=== PATIENT | male | born 1950 | race Caucasian/White ===

== ENCOUNTER 2018-01-29 13:17 | Inpatient (IN) | payer MEDICARE, OTHER ==
[2018-01-29] MEDS ORDERED: IPRATROPIUM/ALBUTEROL 0.5-2.5 MG/3 ML AMPUL NEB ONE ×3 (13:33)
[2018-01-29] MEDS ORDERED: METHYLPREDNISOLONE INJ 125 MG/2 ML SDV IV ONE (13:33)
--- NOTE | 2018-01-29 13:37 | ER Document Report ---
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 Patient notes he has been having shortness breath over the past year. Over the past few days his shortness of breath is worsened. Patient does note that he has been using nasal cannula. Patient denies any fevers or chills notes cough. Patient found satting 68% on triage TRAVEL OUTSIDE OF THE [place] IN LAST 30 DAYS: No - HPI Onset: Last week Onset/Duration: Persistent Quality of pain: No pain Severity: Severe Pain Level: Denies Associated symptoms: Leg swelling, Shortness of breath Exacerbated by: Movement, Walking, Coughing Relieved by: Other - Oxygenation Similar symptoms previously: Yes Recently seen / treated by doctor: Yes - Related Data Allergies/Adverse Reactions: kiwi Allergy (Verified 01/07/18 15:50) jellyfish Allergy (Uncoded 01/07/18 15:50) Past Medical History - Social History Smoking Status: Current Every Day Smoker Cigarette use (# per day): Yes Chew tobacco use (# tins/day): No Smoking Education Provided: Yes - Patient counselled regarding cessation for 2 minutes Family History: Reviewed & Not Pertinent - Past Medical History Cardiac Medical History: Reports: Hx Hypertension Denies: Hx Coronary Artery Disease - Patient says he had a very extensive cardiac evaluation about 3 years ago., Hx Heart Attack Pulmonary Medical History: Reports: Hx COPD Neurological Medical History: Denies: Hx Cerebrovascular Accident Endocrine Medical History: Reports: Hx Diabetes Mellitus Type 1, Hx Diabetes Mellitus Type 2 Renal/ Medical History: Reports: Hx Benign Prostatic Hyperplasia. Denies: Hx Peritoneal Dialysis Past Surgical History: Reports: Hx Abdominal Surgery - Partial colectomy for abscess, Hx Appendectomy, Hx Orthopedic Surgery - Immunizations Hx Diphtheria, Pertussis, Tetanus Vaccination: - unknown Hx Pneumococcal Vaccination: 06/28/14 Review of Systems - Review of Systems Notes: REVIEW OF SYSTEMS: CONSTITUTIONAL : Denies fever, chills, or sweats. Denies recent illness. EENT: Denies eye, ear, throat, or mouth pain or symptoms. Denies nasal or sinus congestion or discharge. Denies throat, tongue, or mouth swelling or difficulty swallowing. CARDIOVASCULAR: Denies chest pain. Denies palpitations or racing or irregular heart beat. Denies ankle edema. RESPIRATORY: Admits to shortness breath difficulty breathing GASTROINTESTINAL: Denies abdominal pain or distention. Denies nausea, vomiting , or diarrhea. Denies blood in vomitus, stools, or per rectum. Denies black, tarry stools. Denies constipation. GENITOURINARY: Denies difficulty urinating, painful urination, burning, frequency, blood in urine, or discharge. MUSCULOSKELETAL: Denies back or neck pain or stiffness. Denies joint pain or swelling. SKIN: Denies rash, lesions or sores. HEMATOLOGIC : Denies easy bruising or bleeding. LYMPHATIC: Denies swollen, enlarged glands. NEUROLOGICAL: Denies confusion or altered mental status. Denies passing out or loss of consciousness. Denies dizziness or lightheadedness. Denies headache. Denies weakness or paralysis or loss of use of either side. Denies problems with gait or speech. Denies sensory loss, numbness, or tingling. Denies seizures. PSYCHIATRIC: Denies anxiety or stress. Denies depression, suicidal ideation, or homicidal ideation. ALL OTHER SYSTEMS REVIEWED AND NEGATIVE. Dictation was performed using [employer] voice recognition software PHYSICAL EXAMINATION: GENERAL: Well-appearing, well-nourished and in no acute distress. Patient's hypoxic with a good [place] anywhere between 72-74% HEAD: Atraumatic, normocephalic. EYES: Pupils equal round extraocular movements intact, sclera anicteric, conjunctiva are normal. ENT: Nares patent, oropharynx clear without exudates. Moist mucous membranes. NECK: Normal range of motion LUNGS: Decreased breath sounds all throughout HEART: Regular rate and rhythm without murmurs Musculoskeletal: +1 pitting edema of lower extremities bilateral NEUROLOGICAL: Normal speech PSYCH: Normal mood, normal affect. SKIN: Warm, Dry, normal turgor, no rashes or lesions noted. Physical Exam - Vital signs Vitals: Pulse BP Pulse Ox 85 151/54 H 69 L 01/29/18 13:23 01/29/18 13:23 01/29/18 13:23 Course - Re-evaluation Re-evalutation: 01/29/18 13:37 Patient is noted while not being significant respiratory distress that he is in fact quite hypoxic oxygen will be placed breathing treatments CTA chest is pending 01/30/18 11:44 CTA chest is concerning for COPD exacerbation, pulmonary nodule noted whic is enlargng. pt given breathing treatments, copd with retention noted so bipap ordered, will be admitted to hospitalist service - Vital Signs Vital signs: Temp Pulse Resp BP Pulse Ox 97.5 F 72 19 151/62 H 92 01/30/18 07:35 01/30/18 08:45 01/30/18 08:45 01/30/18 07:35 01/30/18 07:35 - Laboratory Result Diagrams: 01/30/18 04:15 01/30/18 04:15 Laboratory results interpreted by me: 01/29/18 01/29/18 01/29/18 13:45 13:45 13:45 RBC 4.34 L Hgb 11.9 L Hct 37.0 L RDW 16.2 H VBG pCO2 VBG HCO3 Sodium 147.6 H Carbon Dioxide 38 H BUN 32 H Creatinine 1.71 H Est GFR ( Amer) 48 L Est GFR (Non-Af Amer) 40 L Glucose 135 H NT-Pro-B Natriuret Pep 945 H Urine Protein Urine Glucose (UA) Urine Blood Urine Urobilinogen 01/29/18 01/29/18 13:45 15:30 RBC Hgb Hct RDW VBG pCO2 72.9 H* VBG HCO3 36.0 H Sodium Carbon Dioxide BUN Creatinine Est GFR ( Amer) Est GFR (Non-Af Amer) Glucose NT-Pro-B Natriuret Pep Urine Protein 100 H Urine Glucose (UA) 50 H Urine Blood MODERATE H Urine Urobilinogen 2.0 H - Diagnostic Test Radiology reviewed: Image reviewed - cta chest noted copd, Reports reviewed Critical Care Note - Critical Care Note Total time excluding time spent on procedures (mins): 37 Comments: 37 minutes of critical care time spent in direct contact evaluating and reevaluating the patient, treating symptoms, reviewing labs and studies and speaking with family and consultants excluding any procedures Discharge - Discharge Clinical Impression: Hypoxemia, Tobacco abuse COPD (chronic obstructive pulmonary disease) with emphysema Qualifiers: Emphysema type: unspecified Qualified Code(s): J43.9 - Emphysema, unspecified Condition: Stable Disposition: ADMITTED INPATIENT Admitting Provider: Hospitalist Unit Admitted: Telemetry
[2018-01-29 14:22] LABS: ABSOLUTE EOSINOPHILS # (AUTO) 0.3 10^3/uL (0.0-0.6); ABSOLUTE LYMPHOCYTES (AUTO) 1.4 10^3/uL (0.5-4.7); ABSOLUTE MONOCYTES (AUTO) 0.7 10^3/uL (0.1-1.4); ABSOLUTE NEUT (AUTO) 5.7 10^3/uL (1.7-8.2); BASOPHILS % (AUTO) 0.6 % (0-2); EOSINOPHILS % (AUTO) 3.7 % (0-6); HEMOGLOBIN 11.9 g/dL (13.5-17.0); LYMPHOCYTES % (AUTO) 17.6 % (13-45); MEAN CORPUSCULAR HEMOGLOBIN 27.4 pg (27.0-33.4); MEAN CORPUSCULAR HGB CONC 32.2 g/dL (32.0-36.0); MEAN CORPUSCULAR VOLUME 85 fl (80-97); MONOCYTES % (AUTO) 8.4 % (3-13); PLATELET COUNT 200 10^3/uL (150-450); RED BLOOD COUNT 4.34 10^6/uL (4.35-5.55); RED CELL DISTRIBUTION WIDTH 16.2 % (11.5-14.0); SEGMENTED NEUTROPHILS % (AUTO) 69.7 % (42-78); TOTAL CELLS COUNTED % (AUTO) 100 %; WHITE BLOOD COUNT 8.2 10^3/uL (4.0-10.5)
[2018-01-29 14:41] LABS: ALANINE AMINOTRANSFERASE 40 U/L (21-72); ALBUMIN 3.5 g/dL (3.5-5.0); ALKALINE PHOSPHATASE 92 U/L (38-126); ANION GAP 8 (5-19); ASPARTATE AMINO TRANSFERASE 28 U/L (17-59); BILIRUBIN,DIRECT 0.2 mg/dL (0.0-0.4); BILIRUBIN,TOTAL 0.2 mg/dL (0.2-1.3); BLOOD UREA NITROGEN 32 mg/dL (7-20); CALCIUM 8.8 mg/dL (8.4-10.2); CARBON DIOXIDE 38 mmol/L (22-30); CHLORIDE 102 mmol/L (98-107); CREATINE KINASE 80 U/L (55-170); GLUCOSE 135 mg/dL (75-110); POTASSIUM 4.2 mmol/L (3.6-5.0); SODIUM 147.6 mmol/L (137-145); TOTAL PROTEIN 6.4 g/dL (6.3-8.2)
[2018-01-29 14:54] LABS: CREATINE KINASE MB 3.57 ng/mL (<4.55); TROPONIN I 0.033 ng/mL
--- NOTE | 2018-01-29 14:57 | RADIOLOGY REPORT (SQ) ---
EXAM DESCRIPTION: CHEST SINGLE VIEW COMPLETED DATE/TIME: 01/29/2018 2:17 pm REASON FOR STUDY: sob, copd COMPARISON: 01/07/2018 EXAM PARAMETERS: NUMBER OF VIEWS: One view. TECHNIQUE: Single frontal radiographic view of the chest acquired. RADIATION DOSE: NA LIMITATIONS: None. FINDINGS: LUNGS AND PLEURA: Mild chronic interstitial changes are present. There is no infiltrate o r effusion. . There is no mass. MEDIASTINUM AND HILAR STRUCTURES: No masses. Contour normal. HEART AND VASCULAR STRUCTURES: Heart normal in size. Normal vasculature. BONES: No acute findings. HARDWARE: None in the chest. OTHER: No other significant finding. IMPRESSION: Chronic lung changes with no acute cardiopulmonary disease. TECHNICAL DOCUMENTATION: JOB ID: [id number] [employer]- All Rights Reserved Reading location - IP/workstation name: [email or web address]
--- NOTE | 2018-01-29 15:07 | RADIOLOGY REPORT (SQ) ---
EXAM DESCRIPTION: CTA CHEST COMPLETED DATE/TIME: 01/29/2018 2:50 pm REASON FOR STUDY: sob, copd COMPARISON: CT 11/05/2015 TECHNIQUE: CT scan of the chest performed using helical scanning technique with dynamic intravenous contrast injection. Images reviewed with lung, soft tissue and bone windows. Reconstructed coronal and sagittal MPR images reviewed. Additional 3 dimensional post-processing performed to develop Maximal Intensity Projection images (RI P). All images stored on PACS. All CT scanners at this facility use dose modulation, iterative reconstruction, and/or weight based d osing when appropriate to reduce radiation dose to as low as reasonably achievable (ALARA). [facility]: Dose Right [facility]: CareDose [facility]: Dose Right [facility]: Teradose 4D [facility]: Metric Insights CONTRAST TYPE AND DOSE: contrast/concentration: Isovue 370.00 mg/ml; Total Contrast Delivered: 78.0 ml; Total Saline Delivered: 63.3 ml Contrast bolus optimized for the pulmonary arteries. Not diagnostic for the aorta. RENAL FUNCTION: BUN 28 creatinine 1.72 RADIATION DOSE: CT Rad equipment meets quality standard of care and radiation dose reduction techniq ues were employed. CTDIvol: 30.4 - 33.1 mGy. DLP: 1370 mGy-cm. . LIMITATIONS: None. FINDINGS: LUNGS AND PLEURA: Centrilobular emphysematous changes. There is an irregular nodule in th e right upper lobe posterolaterally that measures 15 mm in largest dimension. This is larger than on the prior study. Left pleural/parenchymal scarring in the right base posteriorly. AORTA AND GREAT VESSELS: No aneurysm. Contrast bolus not optimized for the aorta. HEART: No pericardial effusion. Moderate to marked coronary artery calcifications. PULMONARY ARTERIES: No emboli visualized in the main pulmonary arteries or the segmental branches. HILAR AND MEDIASTINAL STRUCTURES: There is calcified left hilar lymph node. HARDWARE: None in the chest. UPPER ABDOMEN: Diverticulosis coli. THYROID AND OTHER SOFT TISSUES: No masses. No adenopathy. BONES: No acute or significant finding. 3D MIPS: Confirm above findings. OTHER: No other significant finding. IMPRESSION: 1. There is no evidence of pulmonary emboli. 2. There is 15 mm nodule in the right upper lobe that is larger than on the prior study. Consider P ET-CT. 3. Pulmonary emphysema. 4. Diverticulosis coli. COMMENT: F[place]ISCHNER CRITERIA FOR FOLLOW-UP OF PULMONARY NODULES Incidentally detected new nodules in persons 35 or older. HIGH RISK: History of smoking or other known risk factors. >8mm single solid nodule: LOW and HIGH RISK: consider CT, PET/CT or biopsy at 3 mo. Quality ID # [id number]: Final reports with documentation of one or more dose reduction techniques (e.g., Au tomated exposure control, adjustment of the mA and/or kV according to patient size, use of iterative reconstruction technique) TECHNICAL DOCUMENTATION: JOB ID: [id number] [employer]- All Rights Reserved Reading location - IP/workstation name: [email or web address]
[2018-01-29] MEDS ORDERED: BENZONATATE 100 MG CAPSULE PO PRN (15:51)
[2018-01-29] MEDS ORDERED: ACETAMINOPHEN 325 MG TABLET PO PRN (15:51)
[2018-01-29] MEDS ORDERED: OXYCODONE-ACETAMINOPHEN 5-325 MG TABLET PO PRN (15:51)
[2018-01-29] MEDS ORDERED: ONDANSETRON HCL INJ/PF 4 MG/2 ML SDV IV PRN (15:51)
[2018-01-29 15:53] LABS: VENOUS BLOOD BASE EXCESS 7.1 mmol/L; VENOUS BLOOD PH 7.31 (7.30-7.42)
[2018-01-29 15:55] LABS: VENOUS BLOOD PCO2 72.9 mmHg (35-63)
[2018-01-29 16:01] LABS: APPEARANCE,URINE CLEAR; BILIRUBIN,URINE NEGATIVE (NEGATIVE); COLOR,URINE YELLOW; GLUCOSE, URINE 50 mg/dL (NEGATIVE); KETONES,URINE NEGATIVE (NEGATIVE); LEUKOCYTE ESTERASE,URINE NEGATIVE (NEGATIVE); NITRITE,URINE NEGATIVE (NEGATIVE); PROTEIN,URINE 100 mg/dL (NEGATIVE)
[2018-01-29] MEDS ORDERED: NICOTINE 21 MG/24 HR PATCH.TD24 TD PRN (16:33)
[2018-01-29] MEDS ORDERED: DEXTROSE 40% GEL 15 GM TUBE PO PRN ×2 (16:34)
[2018-01-29] MEDS ORDERED: INSULIN LISPRO 100 UNIT/ML 3 ML VIAL SUBCUT PRN (16:34)
[2018-01-29] MEDS ORDERED: DEXTROSE 50%-WATER 25 GM/50 ML DISP.SYRIN IV PRN ×2 (16:34)
[2018-01-29] MEDS ORDERED: GLUCAGON,HUMAN RECOMB 1 MG INJ IM PRN (16:34)
[2018-01-29] MEDS ORDERED: ALPRAZOLAM 0.5 MG TABLET PO PRN (16:35)
--- NOTE | 2018-01-29 17:00 | PDOC H&P ---
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 Patient also complains of having swelling of his legs. He admits that he use oxygen at home around 2-5 L. At the most he uses oxygen four hours a day. Patient complains of having cough but had not been able to bring up the phlegm that he stuck in his chest. Patient denies chest pain. He admits also having a history of COPD. He continues smoking. He admits as to smoke around one pack of cigarettes per day.Patient acknowledges history of diabetes and takes Lantus and truly CT for management of diabetes. He was recently placed on Catapres for the management of blood pressure.Patient also states that he suffers from kidney disease and he has only one kidney. 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 Pulse ox while in ED was in the 70s. Patient was evaluated through CTA of the chest which shows centrilobular emphysema and lung nodule which appear to be larger when compared to previous studies. Hospitalist service was consulted and prompted to admit for further management as this patient may allow us Past Medical History Cardiac Medical History: Reports: Hypertension Denies: Coronary Artery Disease - Patient says he had a very extensive cardiac evaluation about 3 years ago., Myocardial Infarction Pulmonary Medical History: Reports: Chronic Obstructive Pulmonary Disease (COPD) EENT Medical History: Reports: Cataracts Neurological Medical History: Reports: None Endocrine Medical History: Reports: Diabetes Mellitus Type 2 Renal/ Medical History: Reports: Chronic Kidney Disease Malignancy Medical History: Reports: None GI Medical History: Reports: None Musculoskeltal Medical History: Reports: None Skin Medical History: Reports: None Psychiatric Medical History: Reports: Tobacco Dependency Traumatic Medical History: Reports: None Hematology: Reports: None Infectious Medical History: Reports: None Past Surgical History Past Surgical History: Reports: Appendectomy, Orthopedic Surgery, Other - Cataract surgery Social History Information Source: Patient Smoking Status: Current Every Day Smoker Cigarettes Packs Per Day: 1 Frequency of Alcohol Use: None Hx Recreational Drug Use: No Drugs: None Hx Prescription Drug Abuse: No - Advance Directive Resuscitation Status: Full Code Family History Family History: DM, Hypertension Parental Family History Reviewed: Yes Children Family History Reviewed: Yes Sibling(s) Family History Reviewed.: Yes Medication/Allergy Home Medications: Lisinopril/Hydrochlorothiazide [Lisinopril-Hctz 10-12.5 mg Tab] 1 tab PO DAILY 06/18/15 Buspirone HCl [Buspar 10 mg Tablet] 10 mg PO Q8 #90 tablet 06/24/15 Diltiazem HCl [Cardizem Cd 120 mg Capsule] 120 mg PO DAILY #30 cap.sr.24h Ferrous Sulfate [Feosol 325 mg Tablet] 325 mg PO DAILY #100 tablet 06/24/15 Fluticasone/Salmeterol [Advair 250-50 Diskus 28 dose] 1 inh IH Q12H #1 inhaler 06/24/15 Insulin Glargine,Hum.rec.anlog [Lantus Insulin 100 Unit/mL] 20 unit SUBCUT QHS # 1 insuln.pen 06/24/15 Levofloxacin [Levaquin 500 mg Tablet] 500 mg PO DAILY #5 tablet 06/24/15 Prednisone [Deltasone 10 mg Tablet] 10 mg PO DAILY #7 tablet 06/24/15 Tiotropium [place] [Spiriva] 18 mcg IH DAILY #30 cap.w.dev 06/24/15 Fluoxetine HCl [Prozac 20 mg Capsule] 20 mg PO DAILY #10 capsule 06/30/15 Lamotrigine [Lamictal] 50 mg PO QHS #20 tablet 06/30/15 Divalproex Sodium [Depakote ER 500 mg Tab.sr] 1,000 mg PO QHS #10 tab.sr.24h 01/10 Hydroxyzine Pamoate [Vistaril] 50 mg PO Q6HP PRN #60 capsule 07/01/15 Metoprolol Succinate [Toprol Xl 25 mg Tab.sr] 12.5 mg PO BID #30 tab.sr.24h 09/14 Allergies/Adverse Reactions: kiwi Allergy (Verified 01/07/18 15:50) jellyfish Allergy (Uncoded 01/07/18 15:50) Review of Systems Constitutional: PRESENT: chills. ABSENT: fever(s), headache(s), weakness Eyes: ABSENT: visual disturbances Ears: ABSENT: hearing changes Nose, Mouth, and Throat: ABSENT: headache(s), mouth pain, sore throat Cardiovascular: PRESENT: dyspnea on exertion, edema. ABSENT: chest pain, palpitations Respiratory: PRESENT: cough, dyspnea Gastrointestinal: ABSENT: abdominal pain, nausea, vomiting Genitourinary: ABSENT: dysuria, hematuria Musculoskeletal: PRESENT: deformity Neurological: ABSENT: dizziness, frequent falls Psychiatric: ABSENT: hallucinations Endocrine: ABSENT: polydipsia, polyphagia, polyuria Physical Exam Vital Signs: Temp Pulse Resp BP Pulse Ox 86 22 H 167/83 H 97 01/29/18 13:31 01/29/18 14:02 01/29/18 14:02 01/29/18 14:02 General appearance: PRESENT: cooperative, mild distress, obese Head exam: ABSENT: atraumatic, normocephalic Eye exam: ABSENT: conjunctiva pink, EOMI, PERRLA Ear exam: ABSENT: normal external ear exam Mouth exam: ABSENT: moist Teeth exam: PRESENT: poor dentation Neck exam: PRESENT: full ROM. ABSENT: JVD, lymphadenopathy, tenderness Respiratory exam: PRESENT: crackles, decreased breath sounds Cardiovascular exam: PRESENT: RRR. ABSENT: diastolic murmur, systolic murmur Vascular exam: PRESENT: normal capillary refill GI/Abdominal exam: PRESENT: normal bowel sounds, soft. ABSENT: tenderness Extremities exam: PRESENT: full ROM, other - 3+ edema Musculoskeletal exam: PRESENT: ambulatory Neurological exam: PRESENT: alert, awake, oriented to person, oriented to place , oriented to time, oriented to situation, CN II-XII grossly intact Psychiatric exam: PRESENT: anxious Skin exam: PRESENT: normal color Results Impressions: Chest X-Ray 01/29/18 13:32 IMPRESSION: Chronic lung changes with no acute cardiopulmonary disease. Chest/Abdomen CTA 01/29/18 13:32 IMPRESSION: 1. There is no evidence of pulmonary emboli. 2. There is 15 mm nodule in the right upper lobe that is larger than on the prior study. Consider PET-CT. 3. Pulmonary emphysema. 4. Diverticulosis coli. Assessment & Plan - Diagnosis (1) Acute and chronic respiratory failure ([id number]) Qualifiers: Respiratory failure complication: unspecified whether with hypoxia or hypercapnia Qualified Code(s): J96.20 - Acute and chronic respiratory failure , unspecified whether with hypoxia or hypercapnia Is this a current diagnosis for this admission?: Yes Plan: To place patient on BiPAP. Order ABG. Consult Dr. Mccord (2) Acute cor pulmonale Is this a current diagnosis for this admission?: Yes Plan: To gently diuresis. To order echocardiogram (3) COPD with exacerbation Is this a current diagnosis for this admission?: Yes Plan: To place patient on DuoNeb's, Mucinex, IV steroids, Tessalon Perles and IV steroids. Since appears to have a bronchial component to order Zithromax (4) Anemia Qualifiers: Anemia type: unspecified type Qualified Code(s): D64.9 - Anemia, unspecified Is this a current diagnosis for this admission?: Yes Plan: Order anemia panel (5) Chronic renal failure Qualifiers: Chronic kidney disease stage: stage 4 (severe) Qualified Code(s): N18.4 - Chronic kidney disease, stage 4 (severe) Is this a current diagnosis for this admission?: Yes Plan: Patient claims having 1 kidney. Will order renal sonogram. Will treat high blood pressure. 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 Order hemoglobin A1c (7) HTN (hypertension) Qualifiers: Hypertension type: essential hypertension Qualified Code(s): I10 - Essential (primary) hypertension Is this a current diagnosis for this admission?: Yes Plan: To place patient on Norvasc 10 mg p.o. daily and lisinopril 10 mg p.o. daily. To order Norvasc IV for systolic blood pressure higher or equal to 160 or diastolic blood pressure higher or equal to 110 (8) Tobacco abuse Is this a current diagnosis for this admission?: Yes Plan: Will place patient on nicotine patch. Educated about quitting but not amenable to quit. Will place on low-dose Xanax - Time Time Spent: 30 to 50 Minutes Medications reviewed and adjusted accordingly: Yes Anticipated discharge: Home Within: within 72 hours - Inpatient Certification Based on my medical assessment, after consideration of the patient's comorbidities, presenting symptoms, or acuity I expect that the services needed warrant INPATIENT care.: Yes I certify that my determination is in accordance with my understanding of Medicare's requirements for reasonable and necessary INPATIENT services [42 CFR 412.3e].: Yes Medical Necessity: Significant Comorbidiites Make Outpatient Treatment Too Risky , Need Close Monitoring Due to Risk of Patient Decompensation, Need For Continuous Telemetry Monitoring, Need for Nebulizer Therapy and Monitoring of Response
[2018-01-29 17:21] LABS: ARTERIAL BLOOD BASE EXCESS 2.1 mmol/L; ARTERIAL BLOOD HCO3 29.2 mmol/L (20-26); ARTERIAL BLOOD O2 SATURATION 84.5 % (94-98); ARTERIAL BLOOD PCO2 56.6 mmHg (35-45); ARTERIAL BLOOD PH 7.33 (7.35-7.45); ARTERIAL BLOOD PO2 53.1 mmHg (80-100); ARTERIAL BLOOD TOTAL CO2 30.9 mmol/L (23-27)
[2018-01-29 17:24] LABS: ARTERIAL BLOOD FIO2 2L
[2018-01-29] MEDS ORDERED: LISINOPRIL 10 MG TABLET PO SCH (18:00)
[2018-01-29] MEDS ORDERED: FUROSEMIDE INJ/PF 20 MG/2 ML SDV IV SCH (18:00)
[2018-01-29] MEDS: DOCUSATE SODIUM 100 MG CAPSULE PO SCH (18:56)
[2018-01-29] MEDS: GUAIFENESIN 600 MG TABLET.SA PO SCH (18:56)
[2018-01-29] MEDS: AZITHROMYCIN 250 MG TABLET PO SCH (18:56)
[2018-01-29] MEDS: FUROSEMIDE INJ/PF 20 MG/2 ML SDV IV SCH (18:57)
[2018-01-29] MEDS: METHYLPREDNISOLONE INJ 40 MG/1 ML SDV IV SCH (18:57)
[2018-01-29] MEDS: IPRATROPIUM/ALBUTEROL 0.5-2.5 MG/3 ML AMPUL NEB SCH (19:45)
--- NOTE | 2018-01-29 21:05 | EKG REPORT ---
SEVERITY:- ABNORMAL ECG - SINUS RHYTHM ATRIAL PREMATURE COMPLEX LEFT ANTERIOR FASCICULAR BLOCK BORDERLINE R WAVE PROGRESSION, ANTERIOR LEADS NONSPECIFIC T ABNORMALITIES, LATERAL LEADS : Confirmed by: Ashtyn Martin 29-Jan-2018 21:04:55
[2018-01-29] MEDS: ALBUTEROL SULFATE 0.083% NEB 2.5 MG/3 ML AMPUL NEB PRN (21:07)
[2018-01-29] MEDS: HEPARIN SOD (PORCINE) 5,000 UNIT/ML 1 ML SYRINGE SUBCUT SCH (21:27)
[2018-01-29] MEDS: INSULIN GLARGINE,HUM.REC.ANLOG 300 UNIT/3 ML INSULN.PEN SUBCUT SCH (21:28)
[2018-01-29] MEDS ORDERED: AMLODIPINE BESYLATE 10 MG TABLET PO SCH (22:00)
[2018-01-29] MEDS ORDERED: ZOLPIDEM TARTRATE 5 MG TABLET PO PRN (22:00)
[2018-01-30] MEDS: METHYLPREDNISOLONE INJ 40 MG/1 ML SDV IV SCH ×3 (02:47→19:21)
[2018-01-30 04:29] LABS: ABSOLUTE LYMPHOCYTES (AUTO) 0.6 10^3/uL (0.5-4.7); ABSOLUTE MONOCYTES (AUTO) 0.3 10^3/uL (0.1-1.4); ABSOLUTE NEUT (AUTO) 5.4 10^3/uL (1.7-8.2); ABSOLUTE RETICS # 0.113 10^6/uL (0.028-0.122); BASOPHILS % (AUTO) 0.5 % (0-2); EOSINOPHILS % (AUTO) 0.1 % (0-6); HEMATOCRIT 40.2 % (37.9-51.0); HEMOGLOBIN 12.7 g/dL (13.5-17.0); LYMPHOCYTES % (AUTO) 9.9 % (13-45); MEAN CORPUSCULAR HEMOGLOBIN 27.2 pg (27.0-33.4); MEAN CORPUSCULAR HGB CONC 31.6 g/dL (32.0-36.0); MEAN CORPUSCULAR VOLUME 86 fl (80-97); MONOCYTES % (AUTO) 4.1 % (3-13); PLATELET COUNT 211 10^3/uL (150-450); RED BLOOD COUNT 4.66 10^6/uL (4.35-5.55); RED CELL DISTRIBUTION WIDTH 16.1 % (11.5-14.0); RETICULOCYTE COUNT (AUTO) 2.42 % (0.66-2.85); SEGMENTED NEUTROPHILS % (AUTO) 85.4 % (42-78); TOTAL CELLS COUNTED % (AUTO) 100 %; WHITE BLOOD COUNT 6.3 10^3/uL (4.0-10.5)
[2018-01-30 04:39] LABS: ANION GAP 9 (5-19); BLOOD UREA NITROGEN 35 mg/dL (7-20); CALCIUM 8.9 mg/dL (8.4-10.2); CARBON DIOXIDE 39 mmol/L (22-30); CHLORIDE 100 mmol/L (98-107); GLUCOSE 192 mg/dL (75-110); IRON(TIBC) 40.3 ug/dL (49-181); SODIUM 147.6 mmol/L (137-145)
[2018-01-30 04:55] LABS: POTASSIUM 5.6 mmol/L (3.6-5.0)
[2018-01-30] MEDS: GUAIFENESIN 600 MG TABLET.SA PO SCH ×2 (05:30→19:21)
[2018-01-30] MEDS: FUROSEMIDE INJ/PF 20 MG/2 ML SDV IV SCH ×2 (05:31→19:21)
[2018-01-30] MEDS: HEPARIN SOD (PORCINE) 5,000 UNIT/ML 1 ML SYRINGE SUBCUT SCH ×3 (05:31→22:41)
[2018-01-30] MEDS: ALBUTEROL SULFATE 0.083% NEB 2.5 MG/3 ML AMPUL NEB PRN ×2 (05:47→10:15)
[2018-01-30] MEDS ORDERED: SODIUM POLYSTYRENE SULFONATE 15 GM/60 ML PO ONE (07:14)
[2018-01-30] MEDS: IPRATROPIUM/ALBUTEROL 0.5-2.5 MG/3 ML AMPUL NEB SCH ×3 (08:45→20:16)
[2018-01-30] MEDS: ASPIRIN 81 MG TABLET, ENT COATED PO SCH (09:57)
[2018-01-30] MEDS: INSULIN GLARGINE,HUM.REC.ANLOG 300 UNIT/3 ML INSULN.PEN SUBCUT SCH ×2 (09:57→22:43)
--- NOTE | 2018-01-30 10:05 | RADIOLOGY REPORT (SQ) ---
EXAM DESCRIPTION: U/S RETROPERITON (RENAL/AORTA) COMPLETED DATE/TIME: 01/30/2018 9:52 am REASON FOR STUDY: CKD COMPARISON: CT from 05/02/2016 TECHNIQUE: Dynamic and static grayscale images acquired of the kidneys and bladder and recorded on P ACS. Additional selected color Doppler and spectral images recorded. LIMITATIONS: None. FINDINGS: RIGHT KIDNEY: Normal size. Normal echogenicity. Stable cyst. No solid or suspicious mass es. No hydronephrosis. No calcifications. LEFT KIDNEY: Not visible. BLADDER: No masses. OTHER FINDINGS: No other significant finding. IMPRESSION: LEFT KIDNEY IS NOT VISIBLE BY ULTRASOUND AND WAS NOTED TO BE SEVERELY ATROPHIC ON PRIOR CT. NO OBSTRUCTIVE UROPATHY RIGHT KIDNEY. TECHNICAL DOCUMENTATION: JOB ID: [id number] [employer]- All Rights Reserved Reading location - IP/workstation name: [email or web address]
[2018-01-30] MEDS: INSULIN LISPRO 100 UNIT/ML 3 ML VIAL SUBCUT SCH ×3 (10:25→17:08)
[2018-01-30 11:06] LABS: INTERNATIONAL RATION (INR) 1.05; PROTHROMBIN TIME 14.3 SEC (11.4-15.4)
[2018-01-30 11:07] LABS: PARTIAL THROMBOPLASTIN TIME 32.7 SEC (23.5-35.8)
[2018-01-30] MEDS ORDERED: HYDRALAZINE HCL 50 MG TABLET PO ONE (12:15)
[2018-01-30] MEDS ORDERED: AMLODIPINE BESYLATE 10 MG TABLET PO ONE (13:00)
[2018-01-30] MEDS ORDERED: MORPHINE SULFATE 10 MG/ML INJ IV PRN (15:43)
[2018-01-30] MEDS ORDERED: METOPROLOL TARTRATE PF/INJ 5 MG/5 ML SDV IV PRN (15:44)
[2018-01-30] MEDS ORDERED: LORAZEPAM INJ 2 MG/1 ML VIAL IV SCH (15:45)
[2018-01-30 15:55] LABS: ARTERIAL BLOOD BASE EXCESS 9.1 mmol/L; ARTERIAL BLOOD FIO2 30%; ARTERIAL BLOOD H2CO3 2.22 mmol/L (1.05-1.35); ARTERIAL BLOOD HCO3 37.8 mmol/L (20-26); ARTERIAL BLOOD O2 SATURATION 89.5 % (94-98); ARTERIAL BLOOD PH 7.33 (7.35-7.45); ARTERIAL BLOOD PO2 63.1 mmHg (80-100); ARTERIAL BLOOD TOTAL CO2 40.1 mmol/L (23-27)
[2018-01-30 15:56] LABS: ARTERIAL BLOOD PCO2 73.9 mmHg (35-45)
[2018-01-30] MEDS ORDERED: LORAZEPAM 24 MG/ D5W 240 ML IV PRN (16:12)
--- NOTE | 2018-01-30 17:46 | PDOC PROGRESS REPORT ---
Subjective Progress Note for:: 01/30/18 Subjective:: Patient was seen midmorning patient stated that he was doing better. He was asked again if he uses alcohol and he denied in front of the nurse. Then around 1600, the nurse called because was concerned since patient was desaturating. Changes were made to BiPAP and went to evaluate patient. Fortunately there was another nurse who was acquainted with this patient and when I inquired she informed me that the patient has been treated for alcohol withdrawal in the past. It appears that this patient abuses alcohol heavily. Review of systems All organ systems evaluated and negative except as in subjective All significant diagnostics and laboratories have been reviewed Reason For Visit: ACUTE ON CHRONIC RESPIRATORY FAILURE AECOPD Physical Exam Vital Signs: Temp Pulse Resp BP Pulse Ox 97.2 F 74 22 H 153/57 H 95 01/30/18 03:14 01/30/18 05:47 01/30/18 05:47 01/30/18 03:14 01/30/18 03:14 Intake & Output 01/29/18 01/30/18 01/31/18 06:59 06:59 06:59 Output Total 1050 Balance -1050 Weight 93.3 kg General appearance: PRESENT: no acute distress, cooperative, well-developed, well-nourished Head exam: PRESENT: atraumatic, normocephalic Eye exam: PRESENT: conjunctiva pink, EOMI, PERRLA Ear exam: PRESENT: normal external ear exam Mouth exam: PRESENT: moist Neck exam: PRESENT: full ROM. ABSENT: JVD, lymphadenopathy, tenderness Respiratory exam: PRESENT: decreased breath sounds, other - Some improvement of movement of air when compared to admission Cardiovascular exam: PRESENT: RRR. ABSENT: diastolic murmur, systolic murmur Vascular exam: PRESENT: normal capillary refill GI/Abdominal exam: PRESENT: normal bowel sounds, soft. ABSENT: tenderness Extremities exam: PRESENT: full ROM, +1 edema Musculoskeletal exam: PRESENT: ambulatory Neurological exam: PRESENT: alert, awake, oriented to person Psychiatric exam: PRESENT: anxious Skin exam: PRESENT: normal color Results Laboratory Results: 01/30/18 04:15 01/30/18 04:15 01/29/18 01/30/18 01/30/18 17:05 04:15 04:15 WBC 6.3 RBC 4.66 Hgb 12.7 L Hct 40.2 MCV 86 MCH 27.2 MCHC 31.6 L RDW 16.1 H Plt Count 211 Seg Neutrophils % 85.4 H Lymphocytes % 9.9 L Monocytes % 4.1 Eosinophils % 0.1 Basophils % 0.5 Absolute Neutrophils 5.4 Absolute Lymphocytes 0.6 Absolute Monocytes 0.3 Absolute Eosinophils 0.0 Absolute Basophils 0.0 Retic Count (auto) 2.42 Absolute Retic 0.113 Carbonic Acid 1.70 H HCO3/H2CO3 Ratio 17:1 ABG pH 7.33 L ABG pCO2 56.6 H ABG pO2 53.1 L ABG HCO3 29.2 H ABG O2 Saturation 84.5 L ABG Base Excess 2.1 FiO2 2L Sodium 147.6 H Potassium 5.6 H D Chloride 100 Carbon Dioxide 39 H Anion Gap 9 BUN 35 H Creatinine 1.74 H Est GFR ( Amer) 47 L Est GFR (Non-Af Amer) 39 L Glucose 192 H Calcium 8.9 Magnesium 2.4 H Iron 40.3 L TIBC 437 % Saturation 9 Ferritin 18.60 Vitamin B12 411.0 Folate 10.90 TSH 01/30/18 04:15 WBC RBC Hgb Hct MCV MCH MCHC RDW Plt Count Seg Neutrophils % Lymphocytes % Monocytes % Eosinophils % Basophils % Absolute Neutrophils Absolute Lymphocytes Absolute Monocytes Absolute Eosinophils Absolute Basophils Retic Count (auto) Absolute Retic Carbonic Acid HCO3/H2CO3 Ratio ABG pH ABG pCO2 ABG pO2 ABG HCO3 ABG O2 Saturation ABG Base Excess FiO2 Sodium Potassium Chloride Carbon Dioxide Anion Gap BUN Creatinine Est GFR ( Amer) Est GFR (Non-Af Amer) Glucose Calcium Magnesium Iron TIBC % Saturation Ferritin Vitamin B12 Folate TSH 0.24 L 01/29/18 01/29/18 01/30/18 16:53 22:10 04:15 Troponin I 0.031 0.023 0.024 Impressions: Chest X-Ray 01/29/18 13:32 IMPRESSION: Chronic lung changes with no acute cardiopulmonary disease. Chest/Abdomen CTA 01/29/18 13:32 IMPRESSION: 1. There is no evidence of pulmonary emboli. 2. There is 15 mm nodule in the right upper lobe that is larger than on the prior study. Consider PET-CT. 3. Pulmonary emphysema. 4. Diverticulosis coli. Assessment & Plan - Diagnosis (1) Acute and chronic respiratory failure ([id number]) Qualifiers: Respiratory failure complication: unspecified whether with hypoxia or hypercapnia Qualified Code(s): J96.20 - Acute and chronic respiratory failure , unspecified whether with hypoxia or hypercapnia Is this a current diagnosis for this admission?: Yes Plan: Chief BiPAP settings. Order ABG (2) Acute cor pulmonale Is this a current diagnosis for this admission?: Yes Plan: Continue with gentle diuresis. Echocardiogram ordered (3) COPD with exacerbation Is this a current diagnosis for this admission?: Yes Plan: Continue DuoNeb's, Mucinex, IV steroids, Tessalon Perles, IV steroids and Zithromax (4) Anemia Qualifiers: Anemia type: unspecified type Qualified Code(s): D64.9 - Anemia, unspecified Is this a current diagnosis for this admission?: Yes Plan: Order anemia panel (5) Chronic renal failure Qualifiers: Chronic kidney disease stage: stage 4 (severe) Qualified Code(s): N18.4 - Chronic kidney disease, stage 4 (severe) Is this a current diagnosis for this admission?: Yes Plan: Patient claims having 1 kidney. Renal sonogram noted. Will continue treating high blood pressure. Discontinue low-dose lisinopril and add hydralazine to his regimen. (6) Diabetes mellitus Qualifiers: Diabetes mellitus type: type 2 Diabetes mellitus detention insulin use: with detention use Diabetes mellitus complication status: with kidney complications Chronic kidney disease stage: stage 4 (severe) Is this a current diagnosis for this admission?: Yes Plan: Continue Lantus twice a day, Humalog before meals and Humalog sliding scale with bedside glucose before meals and at bedtime. Noted hemoglobin A1c (7) HTN (hypertension) Qualifiers: Hypertension type: essential hypertension Qualified Code(s): I10 - Essential (primary) hypertension Is this a current diagnosis for this admission?: Yes Plan: Continue Norvasc 10 mg p.o. daily. Discontinue lisinopril due to bump in potassium. To place him on hydralazine. (8) Tobacco abuse Is this a current diagnosis for this admission?: Yes Plan: Continue nicotine patch. Educated about quitting but not amenable to quit. Discontinue Xanax. (9) Alcohol abuse Is this a current diagnosis for this admission?: Yes Plan: Patient will be transferred to intensive care unit and placed on a continuous Ativan drip. Concern patient may need to be intubated as he does have a history of a prior intubation according to staff. To start thiamine 300 mg p.o. daily and multivitamin. Will also order morphine IV for breakthrough agitation. Also to order Lopressor IV every 6 hours as needed for heart rate higher or equal to 110 - Time Time Spent with patient: 25-34 minutes Medications reviewed and adjusted accordingly: Yes Anticipated discharge: Home with Homehealth Within: Other - unable to tell at this time - Inpatient Certification Based on my medical assessment, after consideration of the patient's comorbidities, presenting symptoms, or acuity I expect that the services needed warrant INPATIENT care.: Yes I certify that my determination is in accordance with my understanding of Medicare's requirements for reasonable and necessary INPATIENT services [42 CFR 412.3e].: Yes Medical Necessity: Significant Comorbidiites Make Outpatient Treatment Too Risky , Need Close Monitoring Due to Risk of Patient Decompensation, Need For Continuous Telemetry Monitoring, Need for Nebulizer Therapy and Monitoring of Response
[2018-01-30 18:20] LABS: ARTERIAL BLOOD BASE EXCESS 9.6 mmol/L; ARTERIAL BLOOD H2CO3 1.88 mmol/L (1.05-1.35); ARTERIAL BLOOD HCO3 36.9 mmol/L (20-26); ARTERIAL BLOOD PCO2 62.5 mmHg (35-45); ARTERIAL BLOOD PH 7.39 (7.35-7.45); ARTERIAL BLOOD PO2 56.1 mmHg (80-100); ARTERIAL BLOOD TOTAL CO2 38.8 mmol/L (23-27)
[2018-01-30 18:21] LABS: ARTERIAL BLOOD FIO2 30%
[2018-01-30] MEDS: AZITHROMYCIN 250 MG TABLET PO SCH (19:21)
[2018-01-30] MEDS: DOCUSATE SODIUM 100 MG CAPSULE PO SCH (19:21)
[2018-01-30] MEDS: HYDRALAZINE HCL 50 MG TABLET PO SCH (22:55)
[2018-01-30] MEDS ORDERED: HYDRALAZINE HCL INJ/PF 20 MG/1 ML SDV IV PRN (23:08)
[2018-01-31] MEDS: METHYLPREDNISOLONE INJ 40 MG/1 ML SDV IV SCH (01:37)
[2018-01-31 03:33] LABS: ABSOLUTE EOSINOPHILS # (AUTO) 0.1 10^3/uL (0.0-0.6); ABSOLUTE LYMPHOCYTES (AUTO) 1.1 10^3/uL (0.5-4.7); ABSOLUTE MONOCYTES (AUTO) 0.6 10^3/uL (0.1-1.4); ABSOLUTE NEUT (AUTO) 9.3 10^3/uL (1.7-8.2); BASOPHILS % (AUTO) 0.4 % (0-2); EOSINOPHILS % (AUTO) 0.5 % (0-6); HEMATOCRIT 39.2 % (37.9-51.0); HEMOGLOBIN 12.3 g/dL (13.5-17.0); LYMPHOCYTES % (AUTO) 9.7 % (13-45); MEAN CORPUSCULAR HEMOGLOBIN 26.9 pg (27.0-33.4); MEAN CORPUSCULAR HGB CONC 31.3 g/dL (32.0-36.0); MEAN CORPUSCULAR VOLUME 86 fl (80-97); MONOCYTES % (AUTO) 5.5 % (3-13); PLATELET COUNT 227 10^3/uL (150-450); RED BLOOD COUNT 4.56 10^6/uL (4.35-5.55); SEGMENTED NEUTROPHILS % (AUTO) 83.9 % (42-78); TOTAL CELLS COUNTED % (AUTO) 100 %; WHITE BLOOD COUNT 11.1 10^3/uL (4.0-10.5)
[2018-01-31 03:34] LABS: ARTERIAL BLOOD BASE EXCESS 8.6 mmol/L; ARTERIAL BLOOD FIO2 40%; ARTERIAL BLOOD H2CO3 2.94 mmol/L (1.05-1.35); ARTERIAL BLOOD HCO3 39.9 mmol/L (20-26); ARTERIAL BLOOD PH 7.23 (7.35-7.45); ARTERIAL BLOOD PO2 92.1 mmHg (80-100); ARTERIAL BLOOD TOTAL CO2 42.9 mmol/L (23-27)
[2018-01-31 03:35] LABS: ARTERIAL BLOOD PCO2 97.6 mmHg (35-45)
[2018-01-31 03:45] LABS: ANION GAP 8 (5-19); BLOOD UREA NITROGEN 37 mg/dL (7-20); CALCIUM 9.1 mg/dL (8.4-10.2); CARBON DIOXIDE 38 mmol/L (22-30); CHLORIDE 102 mmol/L (98-107); GLUCOSE 96 mg/dL (75-110); SODIUM 148.2 mmol/L (137-145)
[2018-01-31 04:06] LABS: POTASSIUM 4.3 mmol/L (3.6-5.0)
[2018-01-31] MEDS: FUROSEMIDE INJ/PF 20 MG/2 ML SDV IV SCH (05:24)
[2018-01-31] MEDS: HEPARIN SOD (PORCINE) 5,000 UNIT/ML 1 ML SYRINGE SUBCUT SCH ×2 (05:25→13:40)
[2018-01-31 05:45] LABS: ARTERIAL BLOOD H2CO3 2.06 mmol/L (1.05-1.35); ARTERIAL BLOOD HCO3 35.3 mmol/L (20-26); ARTERIAL BLOOD PCO2 68.4 mmHg (35-45); ARTERIAL BLOOD PH 7.33 (7.35-7.45); ARTERIAL BLOOD PO2 61.4 mmHg (80-100); ARTERIAL BLOOD TOTAL CO2 37.4 mmol/L (23-27)
[2018-01-31 05:46] LABS: ARTERIAL BLOOD FIO2 30%
[2018-01-31] MEDS: HYDRALAZINE HCL 50 MG TABLET PO SCH ×2 (06:31→13:36)
[2018-01-31] MEDS: GUAIFENESIN 600 MG TABLET.SA PO SCH ×2 (06:31→17:23)
[2018-01-31] MEDS: IPRATROPIUM/ALBUTEROL 0.5-2.5 MG/3 ML AMPUL NEB SCH ×2 (07:51→13:37)
[2018-01-31] MEDS: INSULIN LISPRO 100 UNIT/ML 3 ML VIAL SUBCUT SCH ×3 (08:13→15:08)
[2018-01-31 08:47] LABS: ARTERIAL BLOOD BASE EXCESS 7.5 mmol/L; ARTERIAL BLOOD H2CO3 2.66 mmol/L (1.05-1.35); ARTERIAL BLOOD HCO3 37.9 mmol/L (20-26); ARTERIAL BLOOD O2 SATURATION 97.9 % (94-98); ARTERIAL BLOOD PH 7.25 (7.35-7.45); ARTERIAL BLOOD PO2 128.5 mmHg (80-100); ARTERIAL BLOOD TOTAL CO2 40.6 mmol/L (23-27)
[2018-01-31 08:48] LABS: ARTERIAL BLOOD FIO2 30%
[2018-01-31 08:49] LABS: ARTERIAL BLOOD PCO2 88.4 mmHg (35-45)
[2018-01-31] MEDS ORDERED: PHARMACY COMMUNICATION ORDER MC NR (09:00)
[2018-01-31] MEDS ORDERED: PROPOFOL 100 ML IV ONE (09:06)
[2018-01-31] MEDS: PROPOFOL 100 ML IV PRN ×4 (09:20→17:58)
[2018-01-31] MEDS ORDERED: SUCCINYLCHOLINE CHLORIDE INJ 200 MG/10 ML VIAL ONE (09:59)
[2018-01-31] MEDS ORDERED: AMLODIPINE BESYLATE 10 MG TABLET PO SCH (10:00)
[2018-01-31] MEDS ORDERED: MULTIVITAMIN TABLET PO SCH (10:00)
[2018-01-31] MEDS ORDERED: THIAMINE HCL 100 MG TABLET PO SCH (10:00)
--- NOTE | 2018-01-31 10:00 | RADIOLOGY REPORT (SQ) ---
EXAM DESCRIPTION: CHEST SINGLE VIEW COMPLETED DATE/TIME: 01/31/2018 9:51 am REASON FOR STUDY: post intubation COMPARISON: 01/29/2018 EXAM PARAMETERS: NUMBER OF VIEWS: One view. TECHNIQUE: Single frontal radiographic view of the chest acquired. RADIATION DOSE: NA LIMITATIONS: None. FINDINGS: LUNGS AND PLEURA: No new opacities, masses or pneumothorax. No pleural effusion. MEDIASTINUM AND HILAR STRUCTURES: No masses. Contour normal. HEART AND VASCULAR STRUCTURES: Heart stable in size. Normal vasculature. BONES: No acute findings. HARDWARE: Endotracheal tube approximately 5 cm above the olvin. Nasogastric tube within the stomach . OTHER: No other significant finding. IMPRESSION: SATISFACTORY PLACEMENT ENDOTRACHEAL TUBE AND NASOGASTRIC TUBE. OTHERWISE STABLE APPEARA NCE OF THE CHEST. TECHNICAL DOCUMENTATION: JOB ID: [id number] [employer]- All Rights Reserved Reading location - IP/workstation name: [email or web address]
[2018-01-31] MEDS ORDERED: NOREPINEPHRINE BITARTRATE INJ/PF 4 MG/4 ML SDV IV ONE (11:03)
[2018-01-31] MEDS: ASPIRIN 81 MG TABLET, ENT COATED PO SCH (11:04)
[2018-01-31] MEDS: INSULIN GLARGINE,HUM.REC.ANLOG 300 UNIT/3 ML INSULN.PEN SUBCUT SCH (11:06)
[2018-01-31 11:15] LABS: ARTERIAL BLOOD BASE EXCESS 9.3 mmol/L; ARTERIAL BLOOD HCO3 36.9 mmol/L (20-26); ARTERIAL BLOOD O2 SATURATION 88.3 % (94-98); ARTERIAL BLOOD PCO2 66.5 mmHg (35-45); ARTERIAL BLOOD PH 7.36 (7.35-7.45); ARTERIAL BLOOD PO2 58.3 mmHg (80-100); ARTERIAL BLOOD TOTAL CO2 38.9 mmol/L (23-27)
[2018-01-31 11:20] LABS: ARTERIAL BLOOD FIO2 40%
[2018-01-31] MEDS ORDERED: DIGOXIN INJ 0.5 MG/2 ML AMPULE IV ONE (11:27)
[2018-01-31] MEDS ORDERED: DEXTROSE 5%-WATER 250 ML with NOREPINEPHRINE BITARTRATE 4 MG IV PRN ×2 (11:51)
[2018-01-31] MEDS ORDERED: NORMAL SALINE 1000 ML 1,000 ML IV PRN (11:56)
[2018-01-31] MEDS ORDERED: MIDAZOLAM HCL 50 MG/100 ML RTUINJ IV PRN (12:08)
--- NOTE | 2018-01-31 13:01 | RADIOLOGY REPORT (SQ) ---
EXAM DESCRIPTION: CHEST SINGLE VIEW COMPLETED DATE/TIME: 01/31/2018 12:47 pm REASON FOR STUDY: ETT placement post advancement. COMPARISON: None. EXAM PARAMETERS: NUMBER OF VIEWS: One view. TECHNIQUE: Single frontal radiographic view of the chest acquired. RADIATION DOSE: NA LIMITATIONS: None. FINDINGS: LUNGS AND PLEURA: No new opacities, masses or pneumothorax. No pleural effusion. MEDIASTINUM AND HILAR STRUCTURES: No masses. Contour normal. HEART AND VASCULAR STRUCTURES: Heart normal in size. Normal vasculature. BONES: No acute findings. HARDWARE: Endotracheal tube approximately 4 cm above the olvin. Nasogastric tube within the stomach . OTHER: No other significant finding. IMPRESSION: STABLE APPEARANCE OF THE CHEST WAS SATISFACTORY PLACEMENT OF ENDOTRACHEAL TUBE AND NASOG ASTRIC TUBE. TECHNICAL DOCUMENTATION: JOB ID: [id number] [employer]- All Rights Reserved Reading location - IP/workstation name: [email or web address]
--- NOTE | 2018-01-31 13:09 | PDOC PROGRESS REPORT ---
Subjective Progress Note for:: 01/31/18 Subjective:: When patient was seen around 8:00 he appeared to be somnolent but responsive to verbal chest stimulation. Nurse updated the author about night events in that patient required changes in BiPAP settings. Appears that night physician opted not to intubate. Repeat ABGs demonstrated elevated bicarb and requested to contact anesthesia to intubate patient. 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 All were very upset about being told that patient was placed in ICU because of alcohol withdrawal. All of them vehemently stated that he does not drink alcohol. inquires about the care that he received 3 years ago. She was made aware that I did not work at this facility then. They were also informed that the information about alcohol abuse was offered by staff including nurse practitioner.History taking on admission was limited likely because patient was not feeling well. In order to make them at ease told them that from my part, I was going to document that he does not drink any alcohol. Family was also requesting for patient to be transferred to [facility]. It appears that they had contacted historiography professor, Dr. Barraza and there was a bed available. The author discussed with them the terms of transfer, that is, patient required a higher level of care and services not been able to be provided at this facility or per family request. The second option will imply family will be in charge of transportation cost. Finally, family was amenable for patient to stay at this facility with the understanding that the author will proceed to transfer patient if no improvement or worsening within the next 24-48 hours.They were also aware that Dr. Mccord has been consulted Review of systems Unable to obtain due to mental status All significant diagnostics and laboratories have been reviewed Reason For Visit: ACUTE ON CHRONIC RESPIRATORY FAILURE AECOPD Physical Exam Vital Signs: Temp Pulse Resp BP Pulse Ox 98.0 F 78 28 H 139/62 H 99 01/30/18 16:00 01/30/18 20:15 01/31/18 06:04 01/31/18 06:04 01/31/18 05:04 Intake & Output 01/30/18 01/31/18 02/01/18 06:59 06:59 06:59 Intake Total 507 Output Total 1050 0 Balance -1050 -1543 Weight 93.3 kg 89.1 kg General appearance: PRESENT: well-developed, well-nourished - somnolent, other Head exam: PRESENT: atraumatic, normocephalic Eye exam: PRESENT: conjunctiva pink, EOMI, PERRLA Ear exam: PRESENT: normal external ear exam Mouth exam: PRESENT: moist Neck exam: PRESENT: full ROM. ABSENT: JVD, lymphadenopathy, tenderness, thyromegaly Respiratory exam: PRESENT: clear to auscultation fredo, decreased breath sounds Cardiovascular exam: PRESENT: tachycardia. ABSENT: diastolic murmur, systolic murmur Vascular exam: PRESENT: normal capillary refill GI/Abdominal exam: PRESENT: normal bowel sounds, soft. ABSENT: tenderness Extremities exam: PRESENT: full ROM, pedal edema Musculoskeletal exam: ABSENT: ambulatory Neurological exam: PRESENT: other - somnolent Skin exam: PRESENT: intact, normal color Results Laboratory Results: 01/31/18 03:21 01/31/18 03:21 01/30/18 01/30/18 01/31/18 15:32 18:07 03:15 WBC RBC Hgb Hct MCV MCH MCHC RDW Plt Count Seg Neutrophils % Lymphocytes % Monocytes % Eosinophils % Basophils % Absolute Neutrophils Absolute Lymphocytes Absolute Monocytes Absolute Eosinophils Absolute Basophils Carbonic Acid 2.22 H 1.88 H 2.94 H HCO3/H2CO3 Ratio 17:1 19:1 13:1 ABG pH 7.33 L 7.39 7.23 L ABG pCO2 73.9 H* 62.5 H 97.6 H* ABG pO2 63.1 L 56.1 L 92.1 ABG HCO3 37.8 H 36.9 H 39.9 H ABG O2 Saturation 89.5 L 88.0 L 95.0 ABG Base Excess 9.1 9.6 8.6 FiO2 30% 30% 40% Sodium Potassium Chloride Carbon Dioxide Anion Gap BUN Creatinine Est GFR ( Amer) Est GFR (Non-Af Amer) Glucose Calcium Magnesium 01/31/18 01/31/18 01/31/18 03:21 03:21 05:32 WBC 11.1 H RBC 4.56 Hgb 12.3 L Hct 39.2 MCV 86 MCH 26.9 L MCHC 31.3 L RDW 16.0 H Plt Count 227 Seg Neutrophils % 83.9 H Lymphocytes % 9.7 L Monocytes % 5.5 Eosinophils % 0.5 Basophils % 0.4 Absolute Neutrophils 9.3 H Absolute Lymphocytes 1.1 Absolute Monocytes 0.6 Absolute Eosinophils 0.1 Absolute Basophils 0.0 Carbonic Acid 2.06 H HCO3/H2CO3 Ratio 17:1 ABG pH 7.33 L ABG pCO2 68.4 H ABG pO2 61.4 L ABG HCO3 35.3 H ABG O2 Saturation 89.0 L ABG Base Excess 7.0 FiO2 30% Sodium 148.2 H Potassium 4.3 D Chloride 102 Carbon Dioxide 38 H Anion Gap 8 BUN 37 H Creatinine 1.64 H Est GFR ( Amer) 51 L Est GFR (Non-Af Amer) 42 L Glucose 96 Calcium 9.1 Magnesium 2.4 H 01/29/18 01/29/18 01/30/18 16:53 22:10 04:15 Troponin I 0.031 0.023 0.024 01/30/18 01/30/18 01/31/18 16:20 21:20 03:21 Troponin I 0.028 0.034 0.035 Impressions: Chest X-Ray 01/29/18 13:32 IMPRESSION: Chronic lung changes with no acute cardiopulmonary disease. Chest/Abdomen CTA 01/29/18 13:32 IMPRESSION: 1. There is no evidence of pulmonary emboli. 2. There is 15 mm nodule in the right upper lobe that is larger than on the prior study. Consider PET-CT. 3. Pulmonary emphysema. 4. Diverticulosis coli. Renal Ultrasound 01/30/18 00:00 IMPRESSION: LEFT KIDNEY IS NOT VISIBLE BY ULTRASOUND AND WAS NOTED TO BE SEVERELY ATROPHIC ON PRIOR CT. NO OBSTRUCTIVE UROPATHY RIGHT KIDNEY. Assessment & Plan - Diagnosis (1) Acute and chronic respiratory failure ([id number]) Qualifiers: Respiratory failure complication: unspecified whether with hypoxia or hypercapnia Qualified Code(s): J96.20 - Acute and chronic respiratory failure , unspecified whether with hypoxia or hypercapnia Is this a current diagnosis for this admission?: Yes Plan: Orders given for intubation, ABG one hour post, NG tube placement, cxr post intubation (2) Acute cor pulmonale Is this a current diagnosis for this admission?: Yes Plan: Discontinue diuresis for now. Echocardiogram ordered (3) COPD with exacerbation Is this a current diagnosis for this admission?: Yes Plan: Continue DuoNeb's, Mucinex, IV steroids, Tessalon Perles, IV steroids, change to Levaquin IV and add Mucomyst (4) Anemia Qualifiers: Anemia type: unspecified type Qualified Code(s): D64.9 - Anemia, unspecified Is this a current diagnosis for this admission?: Yes Plan: Anemia panel pending (5) Chronic renal failure Qualifiers: Chronic kidney disease stage: stage 4 (severe) Qualified Code(s): N18.4 - Chronic kidney disease, stage 4 (severe) Is this a current diagnosis for this admission?: Yes Plan: Renal sonogram noted. Trend renal function closely (6) Diabetes mellitus Qualifiers: Diabetes mellitus type: type 2 Diabetes mellitus halfway insulin use: with oil heaterman use Diabetes mellitus complication status: with kidney complications Chronic kidney disease stage: stage 4 (severe) Is this a current diagnosis for this admission?: Yes Plan: Continue Lantus twice a day, discontinue Humalog before meals and continue Humalog sliding scale with bedside glucose before meals and at bedtime. Noted hemoglobin A1c. Consult dietitian for tube feedings while he is on ventilatory support (7) HTN (hypertension) Qualifiers: Hypertension type: essential hypertension Qualified Code(s): I10 - Essential (primary) hypertension Is this a current diagnosis for this admission?: Yes Plan: Will hold off antihypertensive therapy since hypotensive after intubation (8) Tobacco abuse Is this a current diagnosis for this admission?: Yes Plan: Continue nicotine patch. Educated about quitting but not amenable to quit. (9) Alcohol abuse Is this a current diagnosis for this admission?: No Plan: Patient's family deny history of alcohol abuse. They want for this issue to be clarified in the chart and to talk to staff not provided the information that patient had been treated for alcohol withdrawal. I was able to go back to 2015 in his chart and there is no documentation in that regard. Patient will be on a Versed drip for the purpose of him being on a ventilator and needing sedation. Will continue with thiamine and multivitamin supplementation - Time Time Spent with patient: 25-34 minutes Medications reviewed and adjusted accordingly: Yes Anticipated discharge: Home with Homehealth Within: when bed available - unable to tell at this time - Inpatient Certification Based on my medical assessment, after consideration of the patient's comorbidities, presenting symptoms, or acuity I expect that the services needed warrant INPATIENT care.: Yes I certify that my determination is in accordance with my understanding of Medicare's requirements for reasonable and necessary INPATIENT services [42 CFR 412.3e].: Yes Medical Necessity: Need Close Monitoring Due to Risk of Patient Decompensation, Need For IV Fluids, Need For Continuous Telemetry Monitoring, Need for IV Antibiotics
[2018-01-31] MEDS ORDERED: METHYLPREDNISOLONE INJ 40 MG/1 ML SDV IV SCH ×2 (14:00→18:00)
[2018-01-31] MEDS ORDERED: LEVOFLOXACIN 500 MG/D5W RTU 500 MG/100 ML RTUPB IV SCH (15:00)
[2018-01-31 15:08] LABS: ANION GAP 9 (5-19); BLOOD UREA NITROGEN 41 mg/dL (7-20); CALCIUM 8.8 mg/dL (8.4-10.2); CARBON DIOXIDE 34 mmol/L (22-30); CHLORIDE 104 mmol/L (98-107); GLUCOSE 79 mg/dL (75-110); SODIUM 147.3 mmol/L (137-145)
--- NOTE | 2018-01-31 16:05 | PDOC TRANSFER SUMMARY ---
General Admission Date/PCP: 01/29/18 15:49 Admission Date: 01/29/18 Transfer Date: 01/31/18 Accepting Facility: [facility] Accepting Physician: Dr Barraza Resuscitation Status: Full Code - Transfer Diagnosis (1) Acute and chronic respiratory failure ([id number]) Is this a current diagnosis for this admission?: Yes (2) Acute cor pulmonale Is this a current diagnosis for this admission?: Yes (3) COPD with exacerbation Is this a current diagnosis for this admission?: Yes (4) Anemia Is this a current diagnosis for this admission?: Yes (5) Chronic renal failure Is this a current diagnosis for this admission?: Yes (6) Diabetes mellitus Is this a current diagnosis for this admission?: Yes (7) HTN (hypertension) Is this a current diagnosis for this admission?: Yes (8) Tobacco abuse Is this a current diagnosis for this admission?: Yes (9) Alcohol abuse Is this a current diagnosis for this admission?: No (10) Pulmonary nodule Is this a current diagnosis for this admission?: Yes - Transfer Medications Home Medications: Albuterol Sulfate [Ventolin Hfa] 18 gm IN Q6HP PRN 01/29/18 Atorvastatin Calcium [Lipitor 40 mg Tablet] 40 mg PO QHS 01/29/18 Budesonide/Formoterol Fumarate [Symbicort 160-4.5 Mcg Inhaler] 2 puff IN Q12 01/13 Dulaglutide [Trulicity] 1.5 mg SQ TU@1000 01/29/18 Ergocalciferol (Vitamin D2) [Vitamin D] 400 unit PO DAILY 01/29/18 Insulin Glargine,Hum.rec.anlog [Basaglar Kwikpen U-100] 50 unit SQ QAM 01/29/18 Ipratropium/Albuterol Sulfate [Duoneb 3 ml Ampul] 3 ml IN RTQ6 01/29/18 Lamotrigine [Lamictal 100 mg Tablet] 100 mg PO DAILY 01/29/18 Modafinil [Provigil] 200 mg PO Q12 01/29/18 Transfer Medications: Current Medications Acetaminophen (Tylenol 325 Mg Tablet) 325 mg PO Q4HP PRN PRN Reason: FOR PAIN OR TEMP Stop: 02/28/18 15:50 Acetylcysteine (Mucomist 20% Soln 800 Mg/4 Ml) 600 mg NEB RTBID DG Stop: 03/02/18 19:59 Albuterol (Ventolin 0.083% Neb 2.5 Mg/3 Ml Ampul) 2.5 mg NEB RTQ2HP PRN PRN Reason: SHORTNESS OF BREATH Stop: 02/28/18 15:50 Last Admin: 01/30/18 10:15 Dose: 2.5 mg Albuterol/Ipratropium (Duoneb 3 Ml Ampul) 3 ml NEB [id number] DG Stop: 02/28/18 19:59 Last Admin: 01/31/18 13:37 Dose: 3 ml Amlodipine Besylate (Norvasc 10 Mg Tablet) 10 mg PO DAILY [facility] Stop: 03/02/18 09:59 Last Admin: 01/31/18 11:04 Dose: Not Given Aspirin (Ecotrin 81 Mg Ec Tablet) 81 mg PO DAILY [facility] Stop: 03/01/18 09:59 Last Admin: 01/31/18 11:04 Dose: 81 mg Atorvastatin Calcium (Lipitor 80 Mg Tablet) 80 mg PO QHS [facility] Stop: 03/02/18 21:59 Benzonatate (Tessalon Perles 100 Mg Capsule) 100 mg PO Q8HP PRN PRN Reason: COUGH Stop: 02/28/18 15:50 Last Admin: 01/29/18 23:27 Dose: 100 mg Cholecalciferol (Vitamin D3 400 Unit Tablet) 400 unit PO QPM [facility] Stop: 03/02/18 17:59 Dextrose (Dextrose Inj 50% Syringe (25 Gm/50 Ml)) 12.5 gm IV PRN PRN; Protocol PRN Reason: FOR BG 50-69 IN ALERT PATIENT Stop: 02/28/18 16:33 Dextrose (Dextrose Inj 50% Syringe (25 Gm/50 Ml)) 25 gm IV PRN PRN; Protocol PRN Reason: PER PROTOCOL Stop: 02/28/18 16:33 Docusate Sodium (Colace 100 Mg Capsule) 100 mg PO QPM [facility] Stop: 02/28/18 17:59 Last Admin: 01/30/18 19:21 Dose: Not Given Glucagon (Glucagen Inj 1 Mg Vial) 1 mg IM PRN PRN; Protocol PRN Reason: Evaluate for BG < 70 Stop: 02/28/18 16:33 Glucose (Glutose 40% Gel 15 Gm Tube) 15 gm PO PRN PRN; Protocol PRN Reason: FOR BG 50-69 IN ALERT PATIENT Stop: 02/28/18 16:33 Glucose (Glutose 40% Gel 15 Gm Tube) 30 gm PO PRN PRN; Protocol PRN Reason: FOR BG < 50 IN ALERT PATIENT Stop: 02/28/18 16:33 Guaifenesin (Mucinex Sr 600 Mg Tablet.Sa) 600 mg PO Q12A [facility] Stop: 02/28/18 17:59 Last Admin: 01/31/18 06:31 Dose: Not Given Heparin Sodium (Porcine) (Heparin Inj 5,000 Units/Ml 1 Ml Syringe) 5,000 unit SUBCUT Q8 DG Stop: 02/28/18 21:59 Last Admin: 01/31/18 13:40 Dose: 5,000 unit Hydralazine HCl (Apresoline 50 Mg Tablet) 100 mg PO Q8 DG Stop: 03/01/18 21:59 Last Admin: 01/31/18 13:36 Dose: Not Given Hydralazine HCl (Apresoline Inj/Pf 20 Mg/1 Ml Sdv) 10 mg IV Q6HP PRN PRN Reason: GIVE FOR SBP > 180 Stop: 03/01/18 23:07 Lorazepam (Ativan Iv Infusion 24 Mg/240 Ml Bag) 24 mg in 240 mls @ 0 mls/hr IV CONTINUOUS PRN; Protocol; Titrate PRN Reason: THIS MED IS NOT "PRN" Stop: 02/06/18 16:11 Last Admin: 01/30/18 17:07 Dose: 240 ml Propofol (Diprivan Rtu 1000 Mg/100 Ml Inf.Bottle) 100 mls @ 0 mls/hr IV CONTINUOUS PRN; Protocol; Titrate PRN Reason: THIS MED IS NOT "PRN" Stop: 03/02/18 09:00 Last Admin: 01/31/18 13:39 Dose: 100 ml Norepinephrine Bitartrate 4 mg (/ Dextrose) 250 mls @ 0 mls/hr IV CONTINUOUS PRN; Protocol; Titrate PRN Reason: THIS MED IS NOT "PRN" Stop: 03/02/18 11:50 Sodium Chloride (Nacl 0.9% 1000 Ml Iv Soln) 1,000 mls @ 100 mls/hr IV CONTINUOUS PRN Stop: 03/02/18 11:55 Last Admin: 01/31/18 13:00 Dose: 1,000 ml Midazolam HCl (Versed Rtu 50 Mg/100 Ml Premix Bag) 50 mg in 100 mls @ 0 mls/hr IV CONTINUOUS PRN; Protocol; Titrate PRN Reason: THIS MED IS NOT "PRN" Stop: 02/07/18 12:07 Last Admin: 01/31/18 12:59 Dose: 100 ml Levofloxacin/Dextrose (Levaquin Rtu 750 Mg/D5w 150 Ml Premix) 750 mg in 150 mls @ 100 mls/hr IV DAILY [facility] Stop: 02/08/18 09:59 Insulin Glargine (Lantus Insulin Inj 300 Unit/3 Ml Pen) 35 unit SUBCUT Q12 DG Stop: 02/28/18 21:59 Last Admin: 01/31/18 11:06 Dose: 35 unit Insulin Human Lispro (Humalog Insulin 100 Unit/1 Ml 3 Ml Vial) 0 - 12 unit SUBCUT ACHSP PRN; Protocol PRN Reason: PER PROTOCOL Stop: 02/28/18 16:33 Last Admin: 01/29/18 21:27 Dose: 8 unit Insulin Human Lispro (Humalog Insulin 100 Unit/1 Ml 3 Ml Vial) 6 unit SUBCUT AC [facility] Stop: 03/01/18 07:59 Last Admin: 01/31/18 15:08 Dose: Not Given Lamotrigine (Lamictal 100 Mg Tablet) 100 mg PO DAILY [facility] Stop: 03/03/18 09:59 Lansoprazole (Prevacid 30 Mg Odt Tablet) 30 mg NG QAM [facility] Stop: 03/03/18 07:59 Methylprednisolone Sodium Succinate (Solu-Medrol Inj/Pf 40 Mg/1 Ml Sdv) 40 mg IV Q8 DG Stop: 03/02/18 13:59 Last Admin: 01/31/18 13:40 Dose: 40 mg Metoprolol Succinate (Toprol Xl 25 Mg Tab.Sr) 12.5 mg PO Q12A [facility] Stop: 03/02/18 17:59 Metoprolol Tartrate (Lopressor Inj/Pf 5 Mg/5 Ml Sdv) 5 mg IV Q6HP PRN PRN Reason: GIVE FOR SBP > [] / DBP > [] Stop: 03/01/18 15:43 Last Admin: 01/31/18 09:19 Dose: 5 mg Modafinil (Provigil 100 Mg Tablet) 200 mg PO Q12 DG Stop: 02/07/18 21:59 Morphine Sulfate (Morphine 10 Mg/Ml Inj) 2 mg IV Q4HP PRN PRN Reason: FOR PAIN SCALE 4-5 Stop: 02/06/18 15:42 Multivitamins (Tab-A-Carley (Multiple Vitamin) Tablet) 1 tab PO DAILY DG Stop: 03/02/18 09:59 Last Admin: 01/31/18 11:04 Dose: 1 tab Nicotine (Nicoderm 21 Mg/24 Hr Transderm Patch) 1 each TD DAILYP PRN PRN Reason: WITHDRAWAL SYMPTOMS Stop: 02/28/18 16:32 Ondansetron HCl (Zofran Inj/Pf 4 Mg/2 Ml Sdv) 4 mg IV Q6HP PRN PRN Reason: FOR NAUSEA/VOMITING Stop: 02/28/18 15:50 Oxycodone/Acetaminophen (Percocet 5-325 Mg Tablet) 1 tab PO Q4HP PRN PRN Reason: FOR PAIN SCALE 3-5 Stop: 02/05/18 15:50 Pharmacy Profile Note (Medication Communication Order) 1 each MC .NOTICE NR Stop: 03/02/18 08:59 Thiamine HCl (Thiamine 100 Mg Tablet) 300 mg PO DAILY DG Stop: 03/02/18 09:59 Last Admin: 01/31/18 11:05 Dose: 300 mg - Allergies Allergies/Adverse Reactions: kiwi Allergy (Verified 01/07/18 15:50) jellyfish Allergy (Uncoded 01/07/18 15:50) Hospital Course Hospital Course: TAZ CHINCHILLA is a 67 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 Patient also complained of having swelling of his legs for 4 days as well. He repeorted that he uses oxygen at home around 2-5 L. At the most he uses oxygen four hours a day. Patient complained of having cough but had not been able to bring up the phlegm that is stuck in his chest. Patient denied chest pain. He also has a history of COPD. He continues smoking. He admitted as to smoke around one pack of cigarettes per day.Patient acknowledged history of diabetes and takes Lantus and Trulicity for management of diabetes. He was recently placed on Catapres for the management of blood pressure but stopped using it.Patient also stated that he suffers from kidney disease and he has only one kidney. It is noteworthy to mention that history taking was somewhat limited because he was constantly reminding the author that he needed to get out of here by Thursday since he has to open a new office. Pulse ox while in ED was in the 70s. Patient was evaluated through CTA of the chest which showed centrilobular emphysema and a lung nodule which appeared to be larger when compared to previous studies. Hospitalist service was consulted and prompted to admit for further management as this patient would allowed us Patient was admitted to the stepdown unit since was placed on BiPAP. Initial concern was acute on chronic respiratory failure- hypercapnic/ hypoxemic. Also there was a concern about acute exacerbation of COPD and cor pulmonale. Patient was placed on DuoNeb's, Mucinex, IV steroids, anti-to see if and Zithromax. As he is a heavy smoker he was started on nicotine patch and low- dose Xanax to relieve anxiety. Patient was placed on long-acting insulin and Humalog sliding scale. Echocardiogram was requested however at the time of transfer has not been done since services not available over the weekend. Renal ultrasound obtained on admission showed an atrophic left-sided kidney. Right-sided kidney appeared to be normal. When evaluated on January 30 patient reported slight improvement but was still not having good movement of air. Around 1500 the nurse reported that patient was desaturating and since concerned that patient may eventually require ICU support orders were given to transfer. In addition ordered ABG. BiPAP changes were made. When evaluating patient I was informed that patient did have a history of alcohol withdrawal. Interestingly patient had denied the use of alcohol early on that day. At that point time opted to place patient on Ativan drip since told he had serios problems in that regard. During the night patient again desaturated and was hypercapnic. Hospitalist lead generation marketing manager opted to change BiPAP settings with further improvement. On january 31 patient was again hypercapnic and opted to proceed with intubation since he had prior history of requiring intubation and concerned of him requiring higher doses of benzodiazepines due to the history that was provided to the author by other staff members that had engaged in his care in the past. Family presented and were terribly upset about the history of alcohol withdrawal and stated that he did not drink alcohol. It is noteworthy to mention that most recent discharge summary medical record did not mention any alcohol issues. The discharge summary was back to 2014. They were also concerned that patient would not be provided the care that he deserved because of this issue. A physician quality assurance assistant that used to work with Dr. Muñoz was in the family meeting and reported that [facility] had one bed and that Dr. Barraza was expecting my call. They were requesting transfer because of multispecialty support such as cardiology, pulmonology, toxicology, etc. Later on [facility] contacted the author. I was able to talk to Dr. Barraza about patient's presentation and concerns. He kindly accepted patient on transfer. Patient's was informed. The patient was stable before transfer. Physical Exam Vital Signs: Temp Pulse Resp BP Pulse Ox 98.0 F 70 20 71/50 L 91 L 01/30/18 16:00 01/31/18 13:37 01/31/18 13:37 01/31/18 12:06 01/31/18 15:06 Intake & Output 01/30/18 01/31/18 02/01/18 06:59 06:59 06:59 Intake Total 507 Output Total 1050 2050 900 Balance -1050 -1543 -900 Weight 93.3 kg 89.1 kg General appearance: PRESENT: other Head exam: PRESENT: atraumatic, normocephalic - sedated Ear exam: PRESENT: normal external ear exam Mouth exam: PRESENT: moist Neck exam: PRESENT: full ROM. ABSENT: JVD, lymphadenopathy, tenderness Respiratory exam: PRESENT: clear to auscultation fredo, decreased breath sounds Cardiovascular exam: PRESENT: tachycardia. ABSENT: diastolic murmur, systolic murmur Vascular exam: PRESENT: normal capillary refill GI/Abdominal exam: PRESENT: normal bowel sounds, soft. ABSENT: tenderness Extremities exam: PRESENT: full ROM, +1 edema Musculoskeletal exam: ABSENT: ambulatory Neurological exam: PRESENT: other - sedated Skin exam: PRESENT: normal color Results Laboratory Results: 01/31/18 03:21 01/31/18 14:27 01/30/18 01/30/18 01/31/18 15:32 18:07 03:15 WBC RBC Hgb Hct MCV MCH MCHC RDW Plt Count Seg Neutrophils % Lymphocytes % Monocytes % Eosinophils % Basophils % Absolute Neutrophils Absolute Lymphocytes Absolute Monocytes Absolute Eosinophils Absolute Basophils Carbonic Acid 2.22 H 1.88 H 2.94 H HCO3/H2CO3 Ratio 17:1 19:1 13:1 ABG pH 7.33 L 7.39 7.23 L ABG pCO2 73.9 H* 62.5 H 97.6 H* ABG pO2 63.1 L 56.1 L 92.1 ABG HCO3 37.8 H 36.9 H 39.9 H ABG O2 Saturation 89.5 L 88.0 L 95.0 ABG Base Excess 9.1 9.6 8.6 FiO2 30% 30% 40% Sodium Potassium Chloride Carbon Dioxide Anion Gap BUN Creatinine Est GFR ( Amer) Est GFR (Non-Af Amer) Glucose Calcium Magnesium 01/31/18 01/31/18 01/31/18 03:21 03:21 05:32 WBC 11.1 H RBC 4.56 Hgb 12.3 L Hct 39.2 MCV 86 MCH 26.9 L MCHC 31.3 L RDW 16.0 H Plt Count 227 Seg Neutrophils % 83.9 H Lymphocytes % 9.7 L Monocytes % 5.5 Eosinophils % 0.5 Basophils % 0.4 Absolute Neutrophils 9.3 H Absolute Lymphocytes 1.1 Absolute Monocytes 0.6 Absolute Eosinophils 0.1 Absolute Basophils 0.0 Carbonic Acid 2.06 H HCO3/H2CO3 Ratio 17:1 ABG pH 7.33 L ABG pCO2 68.4 H ABG pO2 61.4 L ABG HCO3 35.3 H ABG O2 Saturation 89.0 L ABG Base Excess 7.0 FiO2 30% Sodium 148.2 H Potassium 4.3 D Chloride 102 Carbon Dioxide 38 H Anion Gap 8 BUN 37 H Creatinine 1.64 H Est GFR ( Amer) 51 L Est GFR (Non-Af Amer) 42 L Glucose 96 Calcium 9.1 Magnesium 2.4 H 01/31/18 01/31/18 01/31/18 08:39 10:50 14:27 WBC RBC Hgb Hct MCV MCH MCHC RDW Plt Count Seg Neutrophils % Lymphocytes % Monocytes % Eosinophils % Basophils % Absolute Neutrophils Absolute Lymphocytes Absolute Monocytes Absolute Eosinophils Absolute Basophils Carbonic Acid 2.66 H 2.00 H HCO3/H2CO3 Ratio 14:1 18:1 ABG pH 7.25 L 7.36 ABG pCO2 88.4 H* 66.5 H ABG pO2 128.5 H 58.3 L ABG HCO3 37.9 H 36.9 H ABG O2 Saturation 97.9 88.3 L ABG Base Excess 7.5 9.3 FiO2 30% 40% Sodium 147.3 H Potassium 4.0 Chloride 104 Carbon Dioxide 34 H Anion Gap 9 BUN 41 H Creatinine 1.70 H Est GFR ( Amer) 49 L Est GFR (Non-Af Amer) 40 L Glucose 79 Calcium 8.8 Magnesium 01/29/18 01/29/18 01/30/18 16:53 22:10 04:15 Troponin I 0.031 0.023 0.024 01/30/18 01/30/18 01/31/18 16:20 21:20 03:21 Troponin I 0.028 0.034 0.035 Impressions: Chest/Abdomen CTA 01/29/18 13:32 IMPRESSION: 1. There is no evidence of pulmonary emboli. 2. There is 15 mm nodule in the right upper lobe that is larger than on the prior study. Consider PET-CT. 3. Pulmonary emphysema. 4. Diverticulosis coli. Renal Ultrasound 01/30/18 00:00 IMPRESSION: LEFT KIDNEY IS NOT VISIBLE BY ULTRASOUND AND WAS NOTED TO BE SEVERELY ATROPHIC ON PRIOR CT. NO OBSTRUCTIVE UROPATHY RIGHT KIDNEY. Chest X-Ray 01/31/18 00:00 IMPRESSION: STABLE APPEARANCE OF THE CHEST WAS SATISFACTORY PLACEMENT OF ENDOTRACHEAL TUBE AND NASOGASTRIC TUBE. Plan Discharge Plan: Transfer to [facility] under Dr. Barraza Time Spent: Greater than 30 Minutes
[2018-01-31 16:08] VITALS: BP 102/51
[2018-01-31] MEDS: DOCUSATE SODIUM 100 MG CAPSULE PO SCH (17:21)
[2018-01-31] MEDS ORDERED: METOPROLOL SUCCINATE 25 MG TAB.SR.24H PO SCH (18:00)
[2018-01-31] MEDS ORDERED: LEVOFLOXACIN 750 MG/D5W RTU 750 MG/150 ML RTUPB IV SCH (18:00)
[2018-01-31] MEDS ORDERED: CHOLECALCIFEROL (D3) 400 UNIT TABLET PO SCH (18:00)
[2018-01-31] MEDS ORDERED: ACETYLCYSTEINE 20% SOLN 800 MG/4 ML VIAL.NEB NEB SCH (20:00)
[2018-01-31] MEDS ORDERED: MODAFINIL 200 MG PO SCH (22:00)
[2018-01-31] MEDS ORDERED: MODAFINIL 100 MG TABLET PO SCH (22:00)
[2018-01-31] MEDS ORDERED: ATORVASTATIN CALCIUM 80 MG TABLET PO SCH (22:00)
[2018-02-01] MEDS ORDERED: LANSOPRAZOLE 30 MG TAB.RAP.DR NG SCH (08:00)
[2018-02-01] MEDS ORDERED: (PENDING PHARMACY ID) (Ergocalciferol (Vitamin D2) [Vitamin D] 400 UNIT) PO SCH (10:00)
[2018-02-01] MEDS ORDERED: LAMOTRIGINE 100 MG TABLET PO SCH (10:00)
--- NOTE | 2018-02-01 11:35 | PDOC CONSULTATION ---
Consultation Consult Date: 01/31/18 Attending physician:: KADE HUYNH Consult reason:: acute/chronic resp failure History of Present Illness Admission Date/PCP: 01/29/18 15:49 History of Present Illness: TAZ CHINCHILLA is a 67 year old malePresented with decreasing mental status he is well-known to [facility] having hypoxic hypercapnic respiratory failure unfortunately continues to smoke and uses oxygen on a as needed basis patient states family was well until December has been declining over the last several weeks specifics were not available Past Medical History Cardiac Medical History: Reports: Hypertension Denies: Coronary Artery Disease - Patient says he had a very extensive cardiac evaluation about 3 years ago., Myocardial Infarction Pulmonary Medical History: Reports: Chronic Obstructive Pulmonary Disease (COPD) EENT Medical History: Reports: Cataracts Neurological Medical History: Reports: None Endocrine Medical History: Reports: Diabetes Mellitus Type 2 Renal/ Medical History: Reports: Chronic Kidney Disease Malignancy Medical History: Reports: None GI Medical History: Reports: None Musculoskeltal Medical History: Reports: None Skin Medical History: Reports: None Psychiatric Medical History: Reports: Tobacco Dependency Traumatic Medical History: Reports: None Denies: Traumatic Brain Injury Hematology: Reports: None Infectious Medical History: Reports: None Past Surgical History Past Surgical History: Reports: Appendectomy, Orthopedic Surgery, Other - Cataract surgery Social History Information Source: Relative, [facility], [facility] Records Smoking Status: Current Every Day Smoker Cigarettes Packs Per Day: 1 Number of Years Smokin Passive smoke exposure as: Both Frequency of Alcohol Use: None Hx Recreational Drug Use: No Drugs: None Hx Prescription Drug Abuse: No Do you have pets?: Yes Have you had any respiratory illnesses as a child?: No Have you been exposed to any sick contacts recently?: No Have you had any recent respiratory illnesses?: Yes Have you travelled outside of [place] in the past 12 months?: No - Advance Directive Resuscitation Status: Full Code Family History Family History: CVA, Hypertension Parental Family History Reviewed: Yes Children Family History Reviewed: Yes Sibling(s) Family History Reviewed.: Yes Medication/Allergy Home Medications: Tiotropium [place] [Spiriva] 18 mcg IH DAILY #30 cap.w.dev 06/24/15 Metoprolol Succinate [Toprol Xl 25 mg Tab.sr] 12.5 mg PO BID #30 tab.sr.24h 09/14 Albuterol Sulfate [Ventolin Hfa] 18 gm IN Q6HP PRN 01/29/18 Atorvastatin Calcium [Lipitor 40 mg Tablet] 40 mg PO QHS 01/29/18 Budesonide/Formoterol Fumarate [Symbicort 160-4.5 Mcg Inhaler] 2 puff IN Q12 01/13 Dulaglutide [Trulicity] 1.5 mg SQ TU@1000 01/29/18 Ergocalciferol (Vitamin D2) [Vitamin D] 400 unit PO DAILY 01/29/18 Insulin Glargine,Hum.rec.anlog [Basaglar Kwikpen U-100] 50 unit SQ QAM 01/29/18 Ipratropium/Albuterol Sulfate [Duoneb 3 ml Ampul] 3 ml IN RTQ6 01/29/18 Lamotrigine [Lamictal 100 mg Tablet] 100 mg PO DAILY 01/29/18 Modafinil [Provigil] 200 mg PO Q12 01/29/18 Allergies/Adverse Reactions: kiwi Allergy (Verified 01/07/18 15:50) jellyfish Allergy (Uncoded 01/07/18 15:50) Review of Systems ROS unobtainable: Due to endotracheal tube Physical Exam Vital Signs: Temp Pulse Resp BP Pulse Ox 98.0 F 84 26 H 139/56 H 90 L 01/30/18 16:00 01/31/18 07:56 01/31/18 08:00 01/31/18 07:04 01/31/18 09:30 Intake & Output 01/30/18 01/31/18 02/01/18 06:59 06:59 06:59 Intake Total 507 Output Total 1050 2050 400 Balance -1050 -1543 -400 Weight 93.3 kg 89.1 kg General appearance: PRESENT: no acute distress, disheveled, well-developed, well -nourished. ABSENT: cooperative Head exam: PRESENT: atraumatic, normocephalic Eye exam: PRESENT: conjunctiva pale. ABSENT: EOMI, nystagmus, periorbital swelling, scleral icterus Mouth exam: PRESENT: dry mucosa, neck supple, tongue midline, other - ET tube Neck exam: ABSENT: carotid bruit, JVD, lymphadenopathy, thyromegaly, tracheal deviation, tracheostomy Respiratory exam: PRESENT: decreased breath sounds, prolonged expiratory phas, rhonchi, symmetrical, unlabored, wheezes. ABSENT: retraction, stridor, tachypnea Cardiovascular exam: PRESENT: RRR, +S1, +S2 Pulses: PRESENT: normal radial pulses GI/Abdominal exam: PRESENT: diminished bowel sounds, soft Gentrourinary exam: PRESENT: indwelling catheter Extremities exam: ABSENT: clubbing, joint swelling, pedal edema Musculoskeletal exam: ABSENT: deformity, dislocation Neurological exam: ABSENT: awake, oriented to person Skin exam: PRESENT: dry, warm Results Laboratory Results: 01/31/18 03:21 01/31/18 03:21 01/30/18 01/30/18 01/31/18 15:32 18:07 03:15 WBC RBC Hgb Hct MCV MCH MCHC RDW Plt Count Seg Neutrophils % Lymphocytes % Monocytes % Eosinophils % Basophils % Absolute Neutrophils Absolute Lymphocytes Absolute Monocytes Absolute Eosinophils Absolute Basophils Carbonic Acid 2.22 H 1.88 H 2.94 H HCO3/H2CO3 Ratio 17:1 19:1 13:1 ABG pH 7.33 L 7.39 7.23 L ABG pCO2 73.9 H* 62.5 H 97.6 H* ABG pO2 63.1 L 56.1 L 92.1 ABG HCO3 37.8 H 36.9 H 39.9 H ABG O2 Saturation 89.5 L 88.0 L 95.0 ABG Base Excess 9.1 9.6 8.6 FiO2 30% 30% 40% Sodium Potassium Chloride Carbon Dioxide Anion Gap BUN Creatinine Est GFR ( Amer) Est GFR (Non-Af Amer) Glucose Calcium Magnesium 01/31/18 01/31/18 01/31/18 03:21 03:21 05:32 WBC 11.1 H RBC 4.56 Hgb 12.3 L Hct 39.2 MCV 86 MCH 26.9 L MCHC 31.3 L RDW 16.0 H Plt Count 227 Seg Neutrophils % 83.9 H Lymphocytes % 9.7 L Monocytes % 5.5 Eosinophils % 0.5 Basophils % 0.4 Absolute Neutrophils 9.3 H Absolute Lymphocytes 1.1 Absolute Monocytes 0.6 Absolute Eosinophils 0.1 Absolute Basophils 0.0 Carbonic Acid 2.06 H HCO3/H2CO3 Ratio 17:1 ABG pH 7.33 L ABG pCO2 68.4 H ABG pO2 61.4 L ABG HCO3 35.3 H ABG O2 Saturation 89.0 L ABG Base Excess 7.0 FiO2 30% Sodium 148.2 H Potassium 4.3 D Chloride 102 Carbon Dioxide 38 H Anion Gap 8 BUN 37 H Creatinine 1.64 H Est GFR ( Amer) 51 L Est GFR (Non-Af Amer) 42 L Glucose 96 Calcium 9.1 Magnesium 2.4 H 01/31/18 01/31/18 08:39 10:50 WBC RBC Hgb Hct MCV MCH MCHC RDW Plt Count Seg Neutrophils % Lymphocytes % Monocytes % Eosinophils % Basophils % Absolute Neutrophils Absolute Lymphocytes Absolute Monocytes Absolute Eosinophils Absolute Basophils Carbonic Acid 2.66 H 2.00 H HCO3/H2CO3 Ratio 14:1 18:1 ABG pH 7.25 L 7.36 ABG pCO2 88.4 H* 66.5 H ABG pO2 128.5 H 58.3 L ABG HCO3 37.9 H 36.9 H ABG O2 Saturation 97.9 88.3 L ABG Base Excess 7.5 9.3 FiO2 30% 40% Sodium Potassium Chloride Carbon Dioxide Anion Gap BUN Creatinine Est GFR ( Amer) Est GFR (Non-Af Amer) Glucose Calcium Magnesium 01/29/18 01/29/18 01/30/18 16:53 22:10 04:15 Troponin I 0.031 0.023 0.024 01/30/18 01/30/18 01/31/18 16:20 21:20 03:21 Troponin I 0.028 0.034 0.035 Impressions: Chest/Abdomen CTA 01/29/18 13:32 IMPRESSION: 1. There is no evidence of pulmonary emboli. 2. There is 15 mm nodule in the right upper lobe that is larger than on the prior study. Consider PET-CT. 3. Pulmonary emphysema. 4. Diverticulosis coli. Renal Ultrasound 01/30/18 00:00 IMPRESSION: LEFT KIDNEY IS NOT VISIBLE BY ULTRASOUND AND WAS NOTED TO BE SEVERELY ATROPHIC ON PRIOR CT. NO OBSTRUCTIVE UROPATHY RIGHT KIDNEY. Chest X-Ray 01/31/18 00:00 IMPRESSION: SATISFACTORY PLACEMENT ENDOTRACHEAL TUBE AND NASOGASTRIC TUBE. OTHERWISE STABLE APPEARANCE OF THE CHEST. Assessment & Plan - Diagnosis (1) Acute and chronic respiratory failure ([id number]) Qualifiers: Respiratory failure complication: unspecified whether with hypoxia or hypercapnia Qualified Code(s): J96.20 - Acute and chronic respiratory failure , unspecified whether with hypoxia or hypercapnia Is this a current diagnosis for this admission?: Yes Plan: chronic hypoxic as well hypercapnic (2) Alcohol abuse Is this a current diagnosis for this admission?: Yes (3) COPD (chronic obstructive pulmonary disease) with emphysema Qualifiers: Emphysema type: unspecified Qualified Code(s): J43.9 - Emphysema, unspecified Is this a current diagnosis for this admission?: Yes Plan: Generic Name Dose Route Start Last Admin Trade Name Freq PRN Reason Stop Dose Admin Nicotine 1 each 01/29/18 16:33 Nicoderm 21 Mg/24 Hr Transderm Patch TD 02/28/18 16:32 DAILYP PRN WITHDRAWAL SYMPTOMS Benzonatate 100 mg 01/29/18 15:51 01/29/18 23:27 Tessalon Perles 100 Mg Capsule PO 02/28/18 15:50 100 mg Q8HP PRN COUGH Methylprednisolone Sodium Succinate 40 mg 01/31/18 14:00 Solu-Medrol Inj/Pf 40 Mg/1 Ml Sdv IV 03/02/18 13:59 Q8 DG Albuterol 2.5 mg 01/29/18 15:51 01/30/18 10:15 Ventolin 0.083% Neb 2.5 Mg/3 Ml Ampul NEB 02/28/18 15:50 2.5 mg RTQ2HP PRN SHORTNESS OF BREATH Albuterol/Ipratropium 3 ml 01/29/18 20:00 01/31/18 07:51 Duoneb 3 Ml Ampul NEB 02/28/18 19:59 3 ml [id number] DG (4) HTN (hypertension) Qualifiers: Hypertension type: essential hypertension Qualified Code(s): I10 - Essential (primary) hypertension Is this a current diagnosis for this admission?: Yes (5) Tobacco abuse Is this a current diagnosis for this admission?: Yes - Time Total Critical Time (Minutes): 60
== END 2018-01-31 18:33 | disposition short-term general hospital (02) | DRG 208 ==
LOC: ER 13:17 → EH 15:49 → UNDOADMIN 15:49 → 3S 18:00 → ICU 01-30 16:01
PROVIDERS: ADMIT Family Medicine; ATTEND Family Medicine
PROC: 5A1935Z Respiratory Ventilation, Less than 24 Consecutive Hours (ICD-10-PCS; principal; 2018-01-31)
PROC: 0BH17EZ Insertion of Endotracheal Airway into Trachea, Via Natural or Artificial Opening (ICD-10-PCS; 2018-01-31)
DX: J96.21 Acute and chronic respiratory failure with hypoxia (principal); N18.4 Chronic kidney disease, stage 4 (severe); I27.81 Cor pulmonale (chronic); J43.9 Emphysema, unspecified; E11.22 Type 2 diabetes mellitus with diabetic chronic kidney disease; I12.9 Hypertensive chronic kidney disease with stage 1 through stage 4 chronic kidney disease, or unspecified chronic kidney disease; D64.9 Anemia, unspecified; N40.0 Benign prostatic hyperplasia without lower urinary tract symptoms; F41.9 Anxiety disorder, unspecified; F17.210 Nicotine dependence, cigarettes, uncomplicated; Z71.6 Tobacco abuse counseling; Z79.4 Long term (current) use of insulin; Z79.51 Long term (current) use of inhaled steroids; Z79.899 Other long term (current) drug therapy
CPT/HCPCS: 31500; 36415; 36600; 71045; 71275; 76770; 80048; 80053; 81001; 82550; 82553; 82607; 82728; 82746; 82803; 82962; 83036; 83540; 83550; 83735; 83880; 84443; 84466; 84484; 85025; 85045; 85610; 85730; 87040; 87070; 87077; 87186; 87205; 93005; 93010; 94002; 94640; 94660; 94667; 94668; 96374; 99291; J0330; J1160; J1644; J1815; J1940; J1956; J2060; J2250; J2704; J2920; J2930; J3490; J7030; J7620

== ENCOUNTER 2018-02-21 18:25 | Inpatient (IN) | payer MEDICARE, OTHER ==
[2018-02-21] MEDS ORDERED: CIPROFLOXACIN 400 MG/D5W RTU 400 MG/200 ML RTUPB IV ONE (19:06)
[2018-02-21] MEDS ORDERED: VANCOMYCIN HCL INJ 1000 MG VIAL IV ONE (19:06)
--- NOTE | 2018-02-21 19:47 | ER Document Report ---
ED Extremity Problem, Lower - General Chief Complaint: Foot Pain Stated Complaint: FOOT INJURY Time Seen by Provider: 02/21/18 18:41 Notes: Patient is a 68-year-old male, past medical history IDDM, COPD, presents with worsening swelling and redness of his right foot and leg. He stepped on a nail through his shoes 5 days ago and was started on Augmentin 3 days ago. He also had a tetanus shot and an outpatient venous Doppler, which he says was negative. Despite taking the Augmentin, the redness is worsening and streaking up his leg. Patient denies pain, drainage, fevers, chest pain or shortness of breath. TRAVEL OUTSIDE OF THE [place] IN LAST 30 DAYS: No - Related Data Allergies/Adverse Reactions: kiwi Allergy (Verified 01/07/18 15:50) jellyfish Allergy (Uncoded 01/07/18 15:50) Past Medical History - General Information source: Patient, Relative - Social History Smoking Status: Former Smoker Family History: CVA, Hypertension - Past Medical History Cardiac Medical History: Reports: Hx Hypertension Denies: Hx Coronary Artery Disease - Patient says he had a very extensive cardiac evaluation about 3 years ago., Hx Heart Attack Pulmonary Medical History: Reports: Hx COPD Neurological Medical History: Denies: Hx Cerebrovascular Accident Endocrine Medical History: Reports: Hx Diabetes Mellitus Type 1, Hx Diabetes Mellitus Type 2 Renal/ Medical History: Reports: Hx Benign Prostatic Hyperplasia. Denies: Hx Peritoneal Dialysis Traumatic Medical History: Denies: Hx Traumatic Brain Injury Past Surgical History: Reports: Hx Abdominal Surgery - Partial colectomy for abscess, Hx Appendectomy, Hx Orthopedic Surgery, Other - Cataract surgery - Immunizations Hx Diphtheria, Pertussis, Tetanus Vaccination: - unknown Hx Pneumococcal Vaccination: 06/28/14 Review of Systems - Review of Systems Notes: REVIEW OF SYSTEMS: CONSTITUTIONAL: -fevers, -chills EENT: -eye pain, -difficulty swallowing, -nasal congestion CARDIOVASCULAR: -chest pain, -syncope. RESPIRATORY: -cough, -SOB GASTROINTESTINAL: -abdominal pain, -nausea, -vomiting, -diarrhea GENITOURINARY: -dysuria, -hematuria MUSCULOSKELETAL: -back pain, -neck pain SKIN: +redness of right foot and leg HEMATOLOGIC: -easy bruising or bleeding. LYMPHATIC: -swollen, enlarged glands. NEUROLOGICAL: -altered mental status or loss of consciousness, -headache, - neurologic symptoms PSYCHIATRIC: -anxiety, -depression. ALL OTHER SYSTEMS REVIEWED AND NEGATIVE. Physical Exam - Vital signs Vitals: Temp Pulse Resp BP Pulse Ox 97.6 F 128 H 28 H 148/52 H 87 L 02/21/18 18:35 02/21/18 18:35 02/21/18 18:35 02/21/18 18:35 02/21/18 18:35 - Notes Notes: PHYSICAL EXAMINATION: GENERAL: Well-appearing, well-nourished and in no acute distress. HEAD: Atraumatic, normocephalic. EYES: Pupils equal round and reactive to light, extraocular movements intact, sclera anicteric, conjunctiva are normal. ENT: nares patent, oropharynx clear without exudates. Moist mucous membranes. NECK: Normal range of motion, supple without lymphadenopathy LUNGS: Breath sounds clear to auscultation bilaterally and equal. No wheezes rales or rhonchi. HEART: Irregular rhythm, heart rate 90s to low 100s ABDOMEN: Soft, nontender, normoactive bowel sounds. No guarding, no rebound. No masses appreciated. EXTREMITIES: Swelling and erythema over right dorsal foot and anterior right spencer up to 1/3 lower right spencer. Puncture wound of right medial 2nd toe without drainage. NEUROLOGICAL: Cranial nerves grossly intact. Normal speech, normal gait. Normal sensory and motor exams. PSYCH: Normal mood, normal affect. Course - Re-evaluation Re-evalutation: Patient with worsening cellulitis around his right foot diabetic foot wound after a puncture wound from a nail has now streaking up his right leg. He is taking his Augmentin as prescribed. X-ray does not show any evidence of osteomyelitis. With the worsening cellulitis despite outpatient antibiotics, patient requires admission for IV antibiotics and further monitoring. Primary care physician is Dr. Waters in [place]. 02/21/18 19:[address] Tavares about the patient's diabetic foot wound and that he will be admitted for IV Abx. He will follow along to see if any intervention is needed. 02/21/18 20:[address] Edgardo Rodriguez and will admit patient to [facility] as Inpatient for further monitoring and treatment. Will add Cefepime. - Vital Signs Vital signs: Temp Pulse Resp BP Pulse Ox 97.6 F 128 H 24 H 129/78 H 95 02/21/18 18:35 02/21/18 18:35 02/21/18 20:01 02/21/18 20:01 02/21/18 20:01 - Laboratory Result Diagrams: 02/21/18 19:00 02/21/18 19:00 Laboratory results interpreted by me: 02/21/18 02/21/18 19:00 19:00 RBC 3.70 L Hgb 10.0 L Hct 31.7 L MCHC 31.7 L RDW 17.3 H Sodium 145.7 H Carbon Dioxide 34 H BUN 30 H Creatinine 1.60 H Est GFR ( Amer) 52 L Est GFR (Non-Af Amer) 43 L Glucose 132 H AST 16 L C-Reactive Protein 61.7 H Albumin 3.4 L - Diagnostic Test Radiology reviewed: Image reviewed, Reports reviewed Radiology results interpreted by me: Right foot x-ray: NEGATIVE STUDY OF THE RIGHT FOOT. NO RADIOGRAPHIC EVIDENCE OF ACUTE INJURY. Discharge - Discharge Clinical Impression: Failure of outpatient treatment, Puncture wound, Diabetic foot infection Cellulitis Qualifiers: Site of cellulitis: extremity Site of cellulitis of extremity: lower extremity Laterality: right Qualified Code(s): L03.115 - Cellulitis of right lower limb Condition: Stable Disposition: ADMITTED INPATIENT Admitting Provider: [facility] Unit Admitted: Telemetry
--- NOTE | 2018-02-21 19:50 | RADIOLOGY REPORT (SQ) ---
EXAM DESCRIPTION: FOOT RIGHT COMPLETE COMPLETED DATE/TIME: 02/21/2018 7:24 pm REASON FOR STUDY: right 2nd toe injury and swelling COMPARISON: None. NUMBER OF VIEWS: Three views. TECHNIQUE: AP, lateral and oblique radiographic images acquired of the right foot. LIMITATIONS: None. FINDINGS: MINERALIZATION: Normal. BONES: No acute fracture or dislocation. No worrisome bone lesions. JOINTS: No effusions. SOFT TISSUES: No soft tissue swelling. No foreign body. OTHER: No other significant finding. IMPRESSION: NEGATIVE STUDY OF THE RIGHT FOOT. NO RADIOGRAPHIC EVIDENCE OF ACUTE INJURY. TECHNICAL DOCUMENTATION: JOB ID: [id number] [employer]- All Rights Reserved Reading location - IP/workstation name: [email or web address]
[2018-02-21 19:53] LABS: ABSOLUTE EOSINOPHILS # (AUTO) 0.2 10^3/uL (0.0-0.6); ABSOLUTE LYMPHOCYTES (AUTO) 1.5 10^3/uL (0.5-4.7); ABSOLUTE MONOCYTES (AUTO) 0.9 10^3/uL (0.1-1.4); ABSOLUTE NEUT (AUTO) 6.1 10^3/uL (1.7-8.2); BASOPHILS % (AUTO) 0.4 % (0-2); EOSINOPHILS % (AUTO) 2.5 % (0-6); HEMATOCRIT 31.7 % (37.9-51.0); LYMPHOCYTES % (AUTO) 17.5 % (13-45); MEAN CORPUSCULAR HEMOGLOBIN 27.1 pg (27.0-33.4); MEAN CORPUSCULAR HGB CONC 31.7 g/dL (32.0-36.0); MEAN CORPUSCULAR VOLUME 86 fl (80-97); MONOCYTES % (AUTO) 10.6 % (3-13); PLATELET COUNT 234 10^3/uL (150-450); RED CELL DISTRIBUTION WIDTH 17.3 % (11.5-14.0); TOTAL CELLS COUNTED % (AUTO) 100 %; WHITE BLOOD COUNT 8.9 10^3/uL (4.0-10.5)
[2018-02-21 19:55] LABS: ALANINE AMINOTRANSFERASE 35 U/L (21-72); ALBUMIN 3.4 g/dL (3.5-5.0); ALKALINE PHOSPHATASE 70 U/L (38-126); ANION GAP 10 (5-19); ASPARTATE AMINO TRANSFERASE 16 U/L (17-59); BILIRUBIN,DIRECT 0.3 mg/dL (0.0-0.4); BILIRUBIN,TOTAL 0.3 mg/dL (0.2-1.3); BLOOD UREA NITROGEN 30 mg/dL (7-20); C-REACTIVE PROTEIN 61.7 mg/L (<10.0); CALCIUM 9.1 mg/dL (8.4-10.2); CARBON DIOXIDE 34 mmol/L (22-30); CHLORIDE 102 mmol/L (98-107); GLUCOSE 132 mg/dL (75-110); POTASSIUM 4.7 mmol/L (3.6-5.0); SODIUM 145.7 mmol/L (137-145); TOTAL PROTEIN 6.3 g/dL (6.3-8.2)
[2018-02-21] MEDS ORDERED: CEFEPIME 1 GM/D5W RTU 1 GM/50 ML RTUPB IV ONE (20:19)
[2018-02-21] MEDS ORDERED: HYDRALAZINE HCL INJ/PF 20 MG/1 ML SDV IV PRN (20:21)
[2018-02-21] MEDS ORDERED: ACETAMINOPHEN 325 MG TABLET PO PRN (20:21)
[2018-02-21] MEDS ORDERED: MAGNESIUM HYDROXIDE SUSP 30 ML UDCUP PO PRN (20:22)
[2018-02-21] MEDS ORDERED: GLUCAGON,HUMAN RECOMB 1 MG INJ IM PRN (20:22)
[2018-02-21] MEDS ORDERED: DEXTROSE 50%-WATER 25 GM/50 ML DISP.SYRIN IV PRN ×2 (20:22)
[2018-02-21] MEDS ORDERED: DEXTROSE 40% GEL 15 GM TUBE PO PRN ×2 (20:22)
[2018-02-21] MEDS ORDERED: MAG HYDROX/AL HYDROX/SIMETH SUSP 30 ML UDCUP PO PRN (20:22)
[2018-02-21] MEDS ORDERED: NICOTINE 14 MG/24 HR PATCH.TD24 TD PRN (20:28)
[2018-02-21 20:34] LABS: ERYTHROCYTE SEDIMENTATION RATE 71 mm/hr (0-20)
[2018-02-21 20:43] LABS: RETICULOCYTE COUNT (AUTO) 2.86 % (0.66-2.85)
[2018-02-21 20:47] LABS: IRON(TIBC) 14.6 ug/dL (49-181)
[2018-02-21 21:59] LABS: FOLATE 7.35 ng/mL (>2.76)
[2018-02-21] MEDS ORDERED: HEPARIN SOD (PORCINE) 5,000 UNIT/ML 1 ML SYRINGE SUBCUT SCH (22:00)
[2018-02-21] MEDS ORDERED: CEFEPIME 1 GM/D5W RTU 2 GM/100 ML RTUPB IV ONE (23:51)
[2018-02-22] MEDS: HEPARIN SOD (PORCINE) 5,000 UNIT/ML 1 ML SYRINGE SUBCUT SCH ×2 (00:11→05:35)
[2018-02-22 00:24] LABS: ARTERIAL BLOOD BASE EXCESS 6.9 mmol/L; ARTERIAL BLOOD H2CO3 1.98 mmol/L (1.05-1.35); ARTERIAL BLOOD HCO3 34.4 mmol/L (20-26); ARTERIAL BLOOD O2 SATURATION 93.8 % (94-98); ARTERIAL BLOOD PCO2 65.9 mmHg (35-45); ARTERIAL BLOOD PH 7.34 (7.35-7.45); ARTERIAL BLOOD PO2 75.5 mmHg (80-100); ARTERIAL BLOOD TOTAL CO2 36.4 mmol/L (23-27)
[2018-02-22 00:25] LABS: ARTERIAL BLOOD FIO2 30%
[2018-02-22 05:46] LABS: ABSOLUTE EOSINOPHILS # (AUTO) 0.2 10^3/uL (0.0-0.6); ABSOLUTE LYMPHOCYTES (AUTO) 1.3 10^3/uL (0.5-4.7); ABSOLUTE MONOCYTES (AUTO) 0.6 10^3/uL (0.1-1.4); ABSOLUTE NEUT (AUTO) 4.9 10^3/uL (1.7-8.2); BASOPHILS % (AUTO) 0.6 % (0-2); EOSINOPHILS % (AUTO) 3.5 % (0-6); HEMATOCRIT 30.5 % (37.9-51.0); HEMOGLOBIN 9.5 g/dL (13.5-17.0); LYMPHOCYTES % (AUTO) 18.9 % (13-45); MEAN CORPUSCULAR HEMOGLOBIN 26.9 pg (27.0-33.4); MEAN CORPUSCULAR HGB CONC 31.1 g/dL (32.0-36.0); MEAN CORPUSCULAR VOLUME 87 fl (80-97); MONOCYTES % (AUTO) 8.5 % (3-13); PLATELET COUNT 194 10^3/uL (150-450); RED BLOOD COUNT 3.53 10^6/uL (4.35-5.55); RED CELL DISTRIBUTION WIDTH 17.2 % (11.5-14.0); SEGMENTED NEUTROPHILS % (AUTO) 68.5 % (42-78); TOTAL CELLS COUNTED % (AUTO) 100 %; WHITE BLOOD COUNT 7.1 10^3/uL (4.0-10.5)
--- NOTE | 2018-02-22 06:00 | PDOC H&P ---
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 He presents after 5 days of swelling erythema and pain to his second right toe following stepping on a sharp object penetrating the sole of the shoe. He has taken amoxicillin with clavulanic acid 4 days without significant improvement prompting evaluation in the emergency room where he is found to have erythema and swelling from the toe to mid leg. He started on vancomycin and cefepime and referred to the hospitalist for admission. Past Medical History Cardiac Medical History: Reports: Hypertension Denies: Coronary Artery Disease - Patient says he had a very extensive cardiac evaluation about 3 years ago., Myocardial Infarction Pulmonary Medical History: Reports: Bronchitis, Chronic Obstructive Pulmonary Disease (COPD), Respiratory Failure - ICU hospitalization 2 in the last month for acute on chronic respiratory f Endocrine Medical History: Reports: Diabetes Mellitus Type 1, Diabetes Mellitus Type 2 Psychiatric Medical History: Reports: Depression, General Anxiety Disorder Denies: Alcohol Dependency Traumatic Medical History: Reports: None Denies: Traumatic Brain Injury Hematology: Reports: None Infectious Medical History: Reports: None Past Surgical History Past Surgical History: Reports: Appendectomy, Orthopedic Surgery, Other - Cataract surgery Social History Information Source: Patient, Relative Lives with: Spouse/Significant other Smoking Status: Former Smoker Frequency of Alcohol Use: None Hx Recreational Drug Use: No Drugs: None Hx Prescription Drug Abuse: No - Advance Directive Resuscitation Status: Full Code Family History Family History: CVA, Hypertension Parental Family History Reviewed: Yes Children Family History Reviewed: Yes Sibling(s) Family History Reviewed.: Yes Medication/Allergy Home Medications: Tiotropium [place] [Spiriva] 18 mcg IH DAILY #30 cap.w.dev 06/24/15 Metoprolol Succinate [Toprol Xl 25 mg Tab.sr] 12.5 mg PO BID #30 tab.sr.24h 09/14 Albuterol Sulfate [Ventolin Hfa] 18 gm IN Q6HP PRN 01/29/18 Atorvastatin Calcium [Lipitor 40 mg Tablet] 40 mg PO QHS 01/29/18 Budesonide/Formoterol Fumarate [Symbicort 160-4.5 Mcg Inhaler] 2 puff IN Q12 01/13 Dulaglutide [Trulicity] 1.5 mg SQ TU@1000 01/29/18 Ergocalciferol (Vitamin D2) [Vitamin D] 400 unit PO DAILY 01/29/18 Insulin Glargine,Hum.rec.anlog [Basaglar Kwikpen U-100] 50 unit SQ QAM 01/29/18 Ipratropium/Albuterol Sulfate [Duoneb 3 ml Ampul] 3 ml IN RTQ6 01/29/18 Lamotrigine [Lamictal 100 mg Tablet] 100 mg PO DAILY 01/29/18 Modafinil [Provigil] 200 mg PO Q12 01/29/18 Allergies/Adverse Reactions: kiwi Allergy (Verified 01/07/18 15:50) jellyfish Allergy (Uncoded 01/07/18 15:50) Review of Systems Constitutional: ABSENT: chills, fever(s), headache(s), weight gain, weight loss Eyes: ABSENT: visual disturbances Ears: ABSENT: hearing changes Cardiovascular: ABSENT: chest pain, dyspnea on exertion, edema, orthropnea, palpitations Respiratory: ABSENT: cough, hemoptysis Gastrointestinal: ABSENT: abdominal pain, constipation, diarrhea, hematemesis, hematochezia, nausea, vomiting Genitourinary: ABSENT: dysuria, hematuria Musculoskeletal: ABSENT: joint swelling Integumentary: ABSENT: rash, wounds Neurological: ABSENT: abnormal gait, abnormal speech, confusion, dizziness, focal weakness, syncope Psychiatric: ABSENT: anxiety, depression, homidical ideation, suicidal ideation Endocrine: ABSENT: cold intolerance, heat intolerance, polydipsia, polyuria Hematologic/Lymphatic: ABSENT: easy bleeding, easy bruising Physical Exam Vital Signs: Temp Pulse Resp BP Pulse Ox 98.6 F 110 H 18 149/67 H 95 02/21/18 23:49 02/21/18 23:49 02/21/18 23:49 02/21/18 23:49 02/21/18 23:49 General appearance: PRESENT: no acute distress, cooperative, mild distress, well -developed, well-nourished. ABSENT: disheveled, hard of hearing Head exam: PRESENT: atraumatic, normocephalic Eye exam: PRESENT: conjunctiva pink, EOMI, PERRLA. ABSENT: scleral icterus Ear exam: PRESENT: normal external ear exam Mouth exam: PRESENT: moist, tongue midline Neck exam: ABSENT: carotid bruit, JVD, lymphadenopathy, thyromegaly Respiratory exam: PRESENT: clear to auscultation fredo, crackles, prolonged expiratory phas, tachypnea. ABSENT: rales, rhonchi, wheezes Cardiovascular exam: PRESENT: RRR. ABSENT: diastolic murmur, rubs, systolic murmur Pulses: PRESENT: normal dorsalis pedis pul Vascular exam: PRESENT: normal capillary refill GI/Abdominal exam: PRESENT: normal bowel sounds, soft. ABSENT: distended, guarding, mass, organolmegaly, rebound, tenderness Rectal exam: PRESENT: deferred Extremities exam: PRESENT: full ROM, tenderness - Erythema of second right toe extending to the mid lower leg., +1 edema. ABSENT: calf tenderness, clubbing, pedal edema Neurological exam: PRESENT: alert, awake, oriented to person, oriented to place , oriented to time, oriented to situation, CN II-XII grossly intact. ABSENT: motor sensory deficit Psychiatric exam: PRESENT: appropriate affect, normal mood. ABSENT: homicidal ideation, suicidal ideation Skin exam: PRESENT: dry, intact, warm. ABSENT: cyanosis, rash Results Laboratory Results: 02/22/18 00:15 Carbonic Acid 1.98 H HCO3/H2CO3 Ratio 17:1 ABG pH 7.34 L ABG pCO2 65.9 H ABG pO2 75.5 L ABG HCO3 34.4 H ABG O2 Saturation 93.8 L ABG Base Excess 6.9 FiO2 30% Impressions: Foot X-Ray 02/21/18 19:05 IMPRESSION: NEGATIVE STUDY OF THE RIGHT FOOT. NO RADIOGRAPHIC EVIDENCE OF ACUTE INJURY. Assessment & Plan - Diagnosis (1) Cellulitis Qualifiers: Site of cellulitis: extremity Site of cellulitis of extremity: lower extremity Laterality: right Qualified Code(s): L03.115 - Cellulitis of right lower limb Is this a current diagnosis for this admission?: Yes Plan: Orthopedic surgery consult, elevation, empiric antibiotics, follow-up blood culture and CBC (2) Diabetic foot infection Is this a current diagnosis for this admission?: Yes Plan: Optimize hyperglycemia, surgical consult (3) Puncture wound Is this a current diagnosis for this admission?: Yes Plan: Pseudomonas and MRSA coverage (4) Acute and chronic respiratory failure ([id number]) Qualifiers: Respiratory failure complication: unspecified whether with hypoxia or hypercapnia Qualified Code(s): J96.20 - Acute and chronic respiratory failure , unspecified whether with hypoxia or hypercapnia Is this a current diagnosis for this admission?: Yes Plan: Complicated by 2 ICU admissions requiring intubation within the last month. Aggressive pulmonary toilet, BiPAP incentive spirometry and flutter valve. (5) Anemia Qualifiers: Anemia type: unspecified type Qualified Code(s): D64.9 - Anemia, unspecified Is this a current diagnosis for this admission?: Yes Plan: Anemia workup initiated follow-up results - Time Time Spent: 30 to 50 Minutes - Inpatient Certification Medical Necessity: Need Close Monitoring Due to Risk of Patient Decompensation
[2018-02-22 06:10] LABS: ANION GAP 11 (5-19); BLOOD UREA NITROGEN 29 mg/dL (7-20); CALCIUM 8.7 mg/dL (8.4-10.2); CARBON DIOXIDE 32 mmol/L (22-30); CHLORIDE 102 mmol/L (98-107); GLUCOSE 229 mg/dL (75-110); POTASSIUM 4.9 mmol/L (3.6-5.0); SODIUM 144.7 mmol/L (137-145)
[2018-02-22] MEDS: INSULIN LISPRO 100 UNIT/ML 3 ML VIAL SUBCUT PRN ×3 (08:14→16:45)
[2018-02-22] MEDS: DOCUSATE SODIUM 100 MG CAPSULE PO SCH ×2 (08:26→18:10)
--- NOTE | 2018-02-22 10:37 | PDOC CONSULTATION ---
Consultation Consult Date: 02/22/18 Attending physician:: SOPHIA MCGRAW Consult reason:: Infected right diabetic foot History of Present Illness Admission Date/PCP: 02/21/18 20:24 DAVE ROLDAN DO Patient complains of: Right foot infection History of Present Illness: TAZ CHINCHILLA is a 68 year old male According to the patient, and patient's daughter who is at bedside, the patient was recently hospitalized at [facility], [facility], and [facility] over the past month for respiratory failure, including intubation. The patient was home approximately 1 week ago when he was abnormal for Balderrama, working on his forearm, when he stepped on a nail. Ground transportation EMS was called and the patient was taken to [facility] where the patient's right shoe was removed, along with the nail sticking through the plantar surface of his right foot. The patient was started on p.o. antibiotics and improved clinically however he continued to remain active at home. He was brought to the emergency department last night for increased redness, swelling and streaking up his foot. He was admitted to the hospitalist service and surgery was consulted. Past Medical History Cardiac Medical History: Reports: Hypertension Denies: Coronary Artery Disease - Patient says he had a very extensive cardiac evaluation about 3 years ago., Myocardial Infarction Pulmonary Medical History: Reports: Bronchitis, Chronic Obstructive Pulmonary Disease (COPD), Respiratory Failure - ICU hospitalization 2 in the last month for acute on chronic respiratory f Endocrine Medical History: Reports: Diabetes Mellitus Type 1, Diabetes Mellitus Type 2 Psychiatric Medical History: Reports: Depression, General Anxiety Disorder Denies: Alcohol Dependency Traumatic Medical History: Reports: None Denies: Traumatic Brain Injury Hematology: Reports: None Infectious Medical History: Reports: None Past Surgical History Past Surgical History: Reports: Appendectomy, Orthopedic Surgery, Other - Debridement left foot diabetic wound cataract surgery Social History Lives with: Spouse/Significant other Smoking Status: Former Smoker Frequency of Alcohol Use: None Hx Recreational Drug Use: No Drugs: None Hx Prescription Drug Abuse: No - Advance Directive Resuscitation Status: Full Code Family History Family History: CVA, Hypertension Parental Family History Reviewed: Yes Children Family History Reviewed: Yes Sibling(s) Family History Reviewed.: Yes Medication/Allergy Home Medications: Tiotropium [place] [Spiriva] 18 mcg IH DAILY #30 cap.w.dev 06/24/15 Metoprolol Succinate [Toprol Xl 25 mg Tab.sr] 12.5 mg PO BID #30 tab.sr.24h 09/14 Albuterol Sulfate [Ventolin Hfa] 18 gm IN Q6HP PRN 01/29/18 Atorvastatin Calcium [Lipitor 40 mg Tablet] 40 mg PO QHS 01/29/18 Budesonide/Formoterol Fumarate [Symbicort 160-4.5 Mcg Inhaler] 2 puff IN Q12 01/13 Dulaglutide [Trulicity] 1.5 mg SQ TU@1000 01/29/18 Ergocalciferol (Vitamin D2) [Vitamin D] 400 unit PO DAILY 01/29/18 Insulin Glargine,Hum.rec.anlog [Basaglar Kwikpen U-100] 50 unit SQ QAM 01/29/18 Ipratropium/Albuterol Sulfate [Duoneb 3 ml Ampul] 3 ml IN RTQ6 01/29/18 Lamotrigine [Lamictal 100 mg Tablet] 100 mg PO DAILY 01/29/18 Modafinil [Provigil] 200 mg PO Q12 01/29/18 Allergies/Adverse Reactions: kiwi Allergy (Verified 01/07/18 15:50) jellyfish Allergy (Uncoded 01/07/18 15:50) Physical Exam Vital Signs: Temp Pulse Resp BP Pulse Ox 97.4 F 84 20 155/58 H 92 02/22/18 08:00 02/22/18 08:00 02/22/18 08:00 02/22/18 08:00 02/22/18 09:34 Intake & Output 02/21/18 02/22/18 02/23/18 06:59 06:59 06:59 Intake Total 120 Output Total 1075 Balance -955 Weight 90.6 kg General appearance: PRESENT: mild distress Head exam: PRESENT: normocephalic Eye exam: PRESENT: EOMI Neck exam: PRESENT: full ROM Respiratory exam: PRESENT: rhonchi Pulses: PRESENT: normal carotid pulses, normal femoral pulses, other - Unable to feel dorsalis pedis or posterior tibial pulses probably due to edema Vascular exam: PRESENT: normal capillary refill Rectal exam: PRESENT: deferred Extremities exam: PRESENT: other - +2 edema on the left, +1-1/2 on the right; there is erythema involving the distal foot, including the right second toe, second and third web space, with tenderness along the medial dorsal right foot. There is a small scab on the medial aspect of the right second toe; there are very small micro puncture wounds to the plantar surface of the foot. There is no foul smell, or active drainage. Results Laboratory Results: 02/22/18 04:21 02/22/18 04:21 02/22/18 02/22/18 02/22/18 00:15 04:21 04:21 WBC 7.1 RBC 3.53 L Hgb 9.5 L Hct 30.5 L MCV 87 MCH 26.9 L MCHC 31.1 L RDW 17.2 H Plt Count 194 Seg Neutrophils % 68.5 Lymphocytes % 18.9 Monocytes % 8.5 Eosinophils % 3.5 Basophils % 0.6 Absolute Neutrophils 4.9 Absolute Lymphocytes 1.3 Absolute Monocytes 0.6 Absolute Eosinophils 0.2 Absolute Basophils 0.0 Carbonic Acid 1.98 H HCO3/H2CO3 Ratio 17:1 ABG pH 7.34 L ABG pCO2 65.9 H ABG pO2 75.5 L ABG HCO3 34.4 H ABG O2 Saturation 93.8 L ABG Base Excess 6.9 FiO2 30% Sodium 144.7 Potassium 4.9 Chloride 102 Carbon Dioxide 32 H Anion Gap 11 BUN 29 H Creatinine 1.75 H Est GFR ( Amer) 47 L Est GFR (Non-Af Amer) 39 L Glucose 229 H Calcium 8.7 Impressions: Foot X-Ray 02/21/18 19:05 IMPRESSION: NEGATIVE STUDY OF THE RIGHT FOOT. NO RADIOGRAPHIC EVIDENCE OF ACUTE INJURY. Assessment & Plan - Diagnosis (1) Puncture wound Is this a current diagnosis for this admission?: Yes Plan: Right foot 1 week ago, secondary to contaminated nail, status post removal; now 6 days later with persisting infection right foot, admitted for intravenous antibiotics. X-ray reveals no retained foreign body. Recommendations: 1. Agree with plans for leg elevation, intravenous antibiotics: No immediate indication for surgical intervention; nonetheless given the mechanism of injury , the complex compartments of the foot, and a noncompliant diabetic male, this foot is still in jeopardy. 2. Because of the patient's personality, very high strong, demonstrative, and strong minded, I told him he needed to stay in the hospital and receive intravenous antibiotics and not go to work tomorrow or the rest of the week. His daughter was at bedside, and outside at the nurses station, expressed her frustration with patient's noncompliance, and manipulative rationalizations. 3. We will order a surgical sandal, and Salazar wraps to control edema. Will follow with you - Time Time Spent: 50 to 70 Minutes Smoking Cessation Education: over 10 minutes Anticipated discharge: Home - Inpatient Certification Based on my medical assessment, after consideration of the patient's comorbidities, presenting symptoms, or acuity I expect that the services needed warrant INPATIENT care.: Yes I certify that my determination is in accordance with my understanding of Medicare's requirements for reasonable and necessary INPATIENT services [42 CFR 412.3e].: Yes Medical Necessity: Need For IV Fluids, Need for Pain Control, Need for IV Antibiotics
[2018-02-22] MEDS ORDERED: VANCOMYCIN HCL 0 MG in DEXTROSE 5%-WATER 250 ML IV NR (12:30)
[2018-02-22] MEDS: DILTIAZEM HCL 180 MG CAPSULE.CR PO SCH (13:08)
[2018-02-22] MEDS: CEFEPIME 2 GM/D5W RTU 2 GM/50 ML RTUPB IV SCH (14:26)
[2018-02-22] MEDS: VANCOMYCIN HCL 750 MG in DEXTROSE 5%-WATER 250 ML IV SCH (15:16)
[2018-02-22] MEDS: LAMOTRIGINE 25 MG TAB.CHEW PO SCH (18:14)
[2018-02-22] MEDS: TAMSULOSIN HCL 0.4 MG CAP.SR.24H PO SCH (18:14)
[2018-02-22] MEDS ORDERED: TIOTROPIUM BROMIDE DPI 5 CAP/KIT (18 MCG/CAP) IH ONE (19:00)
[2018-02-22] MEDS ORDERED: BUDESONIDE/FORMOTEROL 160-4.5 MCG 60 PUFF/6 GM MDI IH ONE (19:00)
[2018-02-22] MEDS: IPRATROPIUM/ALBUTEROL 0.5-2.5 MG/3 ML AMPUL NEB SCH ×2 (19:18→23:58)
[2018-02-22] MEDS: OLANZAPINE 5 MG TABLET PO SCH (21:19)
[2018-02-22] MEDS: APIXABAN 5 MG TABLET PO SCH (21:19)
[2018-02-22] MEDS: ATORVASTATIN CALCIUM 40 MG TABLET PO SCH (21:19)
[2018-02-22] MEDS ORDERED: (PENDING PHARMACY ID) (Olanzapine [Zyprexa] 10 MG) PO SCH (22:00)
[2018-02-23] MEDS: CEFEPIME 2 GM/D5W RTU 2 GM/50 ML RTUPB IV SCH ×2 (02:29→13:25)
[2018-02-23] MEDS: VANCOMYCIN HCL 750 MG in DEXTROSE 5%-WATER 250 ML IV SCH ×2 (03:11→14:32)
[2018-02-23] MEDS: IPRATROPIUM/ALBUTEROL 0.5-2.5 MG/3 ML AMPUL NEB SCH ×5 (04:28→20:25)
[2018-02-23 06:27] LABS: ABSOLUTE EOSINOPHILS # (AUTO) 0.2 10^3/uL (0.0-0.6); ABSOLUTE LYMPHOCYTES (AUTO) 1.3 10^3/uL (0.5-4.7); ABSOLUTE MONOCYTES (AUTO) 0.6 10^3/uL (0.1-1.4); ABSOLUTE NEUT (AUTO) 5.1 10^3/uL (1.7-8.2); BASOPHILS % (AUTO) 0.7 % (0-2); EOSINOPHILS % (AUTO) 3.2 % (0-6); HEMATOCRIT 29.1 % (37.9-51.0); HEMOGLOBIN 9.1 g/dL (13.5-17.0); LYMPHOCYTES % (AUTO) 18.3 % (13-45); MEAN CORPUSCULAR HGB CONC 31.3 g/dL (32.0-36.0); MEAN CORPUSCULAR VOLUME 86 fl (80-97); MONOCYTES % (AUTO) 8.1 % (3-13); PLATELET COUNT 176 10^3/uL (150-450); RED BLOOD COUNT 3.38 10^6/uL (4.35-5.55); RED CELL DISTRIBUTION WIDTH 16.8 % (11.5-14.0); SEGMENTED NEUTROPHILS % (AUTO) 69.7 % (42-78); TOTAL CELLS COUNTED % (AUTO) 100 %; WHITE BLOOD COUNT 7.3 10^3/uL (4.0-10.5)
[2018-02-23 07:04] LABS: ALANINE AMINOTRANSFERASE 31 U/L (21-72); ALBUMIN 3.1 g/dL (3.5-5.0); ALKALINE PHOSPHATASE 71 U/L (38-126); ANION GAP 10 (5-19); ASPARTATE AMINO TRANSFERASE 16 U/L (17-59); BILIRUBIN,DIRECT 0.2 mg/dL (0.0-0.4); BILIRUBIN,TOTAL 0.2 mg/dL (0.2-1.3); BLOOD UREA NITROGEN 29 mg/dL (7-20); CALCIUM 8.8 mg/dL (8.4-10.2); CARBON DIOXIDE 30 mmol/L (22-30); CHLORIDE 103 mmol/L (98-107); GLUCOSE 228 mg/dL (75-110); POTASSIUM 4.7 mmol/L (3.6-5.0); SODIUM 142.8 mmol/L (137-145)
[2018-02-23] MEDS: INSULIN LISPRO 100 UNIT/ML 3 ML VIAL SUBCUT PRN ×4 (07:49→21:23)
[2018-02-23] MEDS: INSULIN GLARGINE,HUM.REC.ANLOG 300 UNIT/3 ML INSULN.PEN SUBCUT SCH (07:49)
[2018-02-23] MEDS: DOCUSATE SODIUM 100 MG CAPSULE PO SCH ×2 (09:20→17:22)
[2018-02-23] MEDS: BUDESONIDE/FORMOTEROL 160-4.5 MCG 60 PUFF/6 GM MDI IH SCH ×2 (09:23→21:23)
[2018-02-23] MEDS: APIXABAN 5 MG TABLET PO SCH ×2 (09:23→21:23)
[2018-02-23] MEDS: TIOTROPIUM BROMIDE DPI 5 CAP/KIT (18 MCG/CAP) IH SCH (09:23)
[2018-02-23] MEDS ORDERED: Dulaglutide [Trulicity] 1.5 MG SUBCUT SCH (10:00)
--- NOTE | 2018-02-23 12:34 | PDOC PROGRESS REPORT ---
Subjective Progress Note for:: 02/23/18 Subjective:: This is a 68-year-old male status post trauma to the right foot. Patient is a poorly controlled diabetic and a smoker. Reports that his foot is improving. He reports that the swelling has decreased. He reports that his pain is improving as well. Patient denies any chest pain, shortness of breath, dizziness, orthostasis, malaise, fatigue, abdominal pain, fevers, chills, nausea , or vomiting. Reason For Visit: CELLULITIS Physical Exam Vital Signs: Temp Pulse Resp BP Pulse Ox 97.3 F 80 18 140/59 H 90 L 02/23/18 11:22 02/23/18 12:19 02/23/18 12:20 02/23/18 11:22 02/23/18 12:19 Intake & Output 02/22/18 02/23/18 02/24/18 06:59 06:59 06:59 Intake Total 120 2140 Output Total 1075 Balance -955 2140 Weight 90.6 kg General appearance: PRESENT: no acute distress Head exam: PRESENT: atraumatic, normocephalic Eye exam: PRESENT: EOMI, PERRLA. ABSENT: scleral icterus Mouth exam: PRESENT: moist, neck supple Neck exam: ABSENT: lymphadenopathy, meningismus, tenderness, thyromegaly, tracheal deviation Respiratory exam: PRESENT: unlabored. ABSENT: chest wall tenderness Cardiovascular exam: PRESENT: RRR Pulses: PRESENT: normal radial pulses Vascular exam: ABSENT: pallor GI/Abdominal exam: PRESENT: soft. ABSENT: distended, tenderness Extremities exam: PRESENT: other - Minimal edema of the right foot. Erythema appears to be shrinking. No fluctuance or purulent drainage. Neurological exam: PRESENT: alert, awake, oriented to person, oriented to place , oriented to time, oriented to situation, CN II-XII grossly intact Psychiatric exam: ABSENT: agitated, anxious Skin exam: PRESENT: erythema - Right foot, improving. ABSENT: cyanosis, jaundice, pallor Results Laboratory Results: 02/23/18 05:15 02/23/18 05:15 02/23/18 02/23/18 02/23/18 05:15 05:15 05:15 WBC 7.3 RBC 3.38 L Hgb 9.1 L Hct 29.1 L MCV 86 MCH 27.0 MCHC 31.3 L RDW 16.8 H Plt Count 176 Seg Neutrophils % 69.7 Lymphocytes % 18.3 Monocytes % 8.1 Eosinophils % 3.2 Basophils % 0.7 Absolute Neutrophils 5.1 Absolute Lymphocytes 1.3 Absolute Monocytes 0.6 Absolute Eosinophils 0.2 Absolute Basophils 0.0 Sodium 142.8 Potassium 4.7 Chloride 103 Carbon Dioxide 30 Anion Gap 10 BUN 29 H Creatinine 1.67 H Est GFR ( Amer) 50 L Est GFR (Non-Af Amer) 41 L Glucose 228 H Calcium 8.8 Total Bilirubin 0.2 AST 16 L ALT 31 Alkaline Phosphatase 71 Total Protein 6.0 L Albumin 3.1 L TSH 1.00 Impressions: Foot X-Ray 02/21/18 19:05 IMPRESSION: NEGATIVE STUDY OF THE RIGHT FOOT. NO RADIOGRAPHIC EVIDENCE OF ACUTE INJURY. Assessment & Plan - Diagnosis (1) Cellulitis Qualifiers: Site of cellulitis: extremity Site of cellulitis of extremity: lower extremity Laterality: right Qualified Code(s): L03.115 - Cellulitis of right lower limb Is this a current diagnosis for this admission?: Yes (2) Diabetic foot infection Is this a current diagnosis for this admission?: Yes - Plan Summary Plan Summary: This is a 68-year-old diabetic male with a right foot infection after a puncture wound. The patient's symptoms are improving. I have recommended that the patient continue with compression and elevation. No surgical intervention is warranted at this time. Close observation is mandatory. I will continue to follow this patient very closely with you.
[2018-02-23] MEDS: DILTIAZEM HCL 180 MG CAPSULE.CR PO SCH (13:25)
--- NOTE | 2018-02-23 15:25 | PDOC PROGRESS REPORT ---
Subjective Progress Note for:: 02/23/18 Subjective:: Mr. 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 Patient has been started empirically on vancomycin and cefepime. His blood culture is pending. This morning I seen the patient resting in bed comfortably he is not in pain or distress. The inflammation and swelling of right leg is subsiding. He was evaluated by general surgeon and recommended medical management no surgical intervention. Reason For Visit: CELLULITIS Physical Exam Vital Signs: Temp Pulse Resp BP Pulse Ox 97.3 F 80 18 140/59 H 90 L 02/23/18 11:22 02/23/18 12:19 02/23/18 12:20 02/23/18 11:22 02/23/18 12:19 Intake & Output 02/22/18 02/23/18 02/24/18 06:59 06:59 06:59 Intake Total 120 2140 Output Total 1075 Balance -955 2140 Weight 90.6 kg General appearance: PRESENT: no acute distress, well-developed, well-nourished Head exam: PRESENT: atraumatic, normocephalic Respiratory exam: PRESENT: clear to auscultation fredo. ABSENT: rales, rhonchi, wheezes Cardiovascular exam: PRESENT: RRR. ABSENT: diastolic murmur, rubs, systolic murmur Extremities exam: PRESENT: other - Resolving right leg and foot cellulitis. Results Laboratory Results: 02/23/18 05:15 02/23/18 05:15 02/23/18 02/23/18 02/23/18 05:15 05:15 05:15 WBC 7.3 RBC 3.38 L Hgb 9.1 L Hct 29.1 L MCV 86 MCH 27.0 MCHC 31.3 L RDW 16.8 H Plt Count 176 Seg Neutrophils % 69.7 Lymphocytes % 18.3 Monocytes % 8.1 Eosinophils % 3.2 Basophils % 0.7 Absolute Neutrophils 5.1 Absolute Lymphocytes 1.3 Absolute Monocytes 0.6 Absolute Eosinophils 0.2 Absolute Basophils 0.0 Sodium 142.8 Potassium 4.7 Chloride 103 Carbon Dioxide 30 Anion Gap 10 BUN 29 H Creatinine 1.67 H Est GFR ( Amer) 50 L Est GFR (Non-Af Amer) 41 L Glucose 228 H Calcium 8.8 Total Bilirubin 0.2 AST 16 L ALT 31 Alkaline Phosphatase 71 Total Protein 6.0 L Albumin 3.1 L TSH 1.00 Impressions: Foot X-Ray 02/21/18 19:05 IMPRESSION: NEGATIVE STUDY OF THE RIGHT FOOT. NO RADIOGRAPHIC EVIDENCE OF ACUTE INJURY. Assessment & Plan - Diagnosis (1) Cellulitis Qualifiers: Site of cellulitis: extremity Site of cellulitis of extremity: lower extremity Laterality: right Qualified Code(s): L03.115 - Cellulitis of right lower limb Is this a current diagnosis for this admission?: Yes Plan: Continue cefepime and vancomycin. We de-escalate the antibiotic regimen based on his clinical response and culture results. (2) Diabetic foot infection Is this a current diagnosis for this admission?: Yes Plan: Poorly controlled diabetes. Patient advised to comply with his medication. And follow-up with his primary care physician (3) COPD (chronic obstructive pulmonary disease) with emphysema Qualifiers: Emphysema type: unspecified Qualified Code(s): J43.9 - Emphysema, unspecified Is this a current diagnosis for this admission?: Yes Plan: He is on as needed bronchodilators. (4) Diabetes mellitus Qualifiers: Diabetes mellitus type: type 2 Diabetes mellitus joint terminal attack controller insulin use: with joint terminal attack controller use Diabetes mellitus complication status: with kidney complications Chronic kidney disease stage: stage 3 (moderate) Is this a current diagnosis for this admission?: Yes (5) HTN (hypertension) Qualifiers: Hypertension type: essential hypertension Qualified Code(s): I10 - Essential (primary) hypertension Is this a current diagnosis for this admission?: Yes Plan: Stable continue his home medication. - Time Time Spent with patient: 25-34 minutes
[2018-02-23] MEDS: KETOROLAC TROMETHAMINE INJ/PF 30 MG/1 ML SDV IV PRN ×2 (16:31→22:47)
[2018-02-23] MEDS: LAMOTRIGINE 25 MG TAB.CHEW PO SCH (17:24)
[2018-02-23] MEDS: TAMSULOSIN HCL 0.4 MG CAP.SR.24H PO SCH (17:24)
[2018-02-23] MEDS ORDERED: DULAGLUTIDE 1.5 MG SUBCUT ONE (18:00)
[2018-02-23] MEDS: ATORVASTATIN CALCIUM 40 MG TABLET PO SCH (21:23)
[2018-02-23] MEDS: OLANZAPINE 5 MG TABLET PO SCH (21:23)
--- NOTE | 2018-02-23 23:31 | EKG REPORT ---
SEVERITY:- ABNORMAL ECG - ATRIAL FIBRILLATION LAD, CONSIDER LAFB OR INFERIOR INFARCT BORDERLINE T ABNORMALITIES, LATERAL LEADS : Confirmed by: Ashtyn Martin 23-Feb-2018 23:30:26
[2018-02-24] MEDS: IPRATROPIUM/ALBUTEROL 0.5-2.5 MG/3 ML AMPUL NEB SCH ×4 (00:22→11:27)
[2018-02-24] MEDS: CEFEPIME 2 GM/D5W RTU 2 GM/50 ML RTUPB IV SCH ×2 (01:33→13:13)
[2018-02-24] MEDS: VANCOMYCIN HCL 750 MG in DEXTROSE 5%-WATER 250 ML IV SCH (02:07)
[2018-02-24] MEDS: INSULIN GLARGINE,HUM.REC.ANLOG 300 UNIT/3 ML INSULN.PEN SUBCUT SCH (07:26)
[2018-02-24] MEDS: INSULIN LISPRO 100 UNIT/ML 3 ML VIAL SUBCUT PRN ×2 (07:27→11:35)
[2018-02-24] MEDS: DOCUSATE SODIUM 100 MG CAPSULE PO SCH (09:07)
[2018-02-24] MEDS: APIXABAN 5 MG TABLET PO SCH (09:12)
[2018-02-24] MEDS: TIOTROPIUM BROMIDE DPI 5 CAP/KIT (18 MCG/CAP) IH SCH (09:12)
[2018-02-24] MEDS: BUDESONIDE/FORMOTEROL 160-4.5 MCG 60 PUFF/6 GM MDI IH SCH (09:13)
[2018-02-24 09:49] VITALS: BP 148/52
[2018-02-24] MEDS ORDERED: FUROSEMIDE INJ/PF 20 MG/2 ML SDV IV ONE (10:00)
--- NOTE | 2018-02-24 10:04 | PDOC DISCHARGE SUMMARY ---
General - Admit/Disc Date/PCP Admission Date/Primary Care Provider: 02/21/18 20:24 DAVE ROLDAN DO Discharge Date: 02/24/18 - Discharge Diagnosis (1) Cellulitis Is this a current diagnosis for this admission?: Yes (2) Diabetic foot infection Is this a current diagnosis for this admission?: Yes (3) COPD (chronic obstructive pulmonary disease) with emphysema Is this a current diagnosis for this admission?: Yes (4) Diabetes mellitus Is this a current diagnosis for this admission?: Yes (5) HTN (hypertension) Is this a current diagnosis for this admission?: Yes - Additional Information Resuscitation Status: Full Code Discharge Diet: Regular Discharge Activity: Activity As Tolerated Prescriptions: Clindamycin HCl [Cleocin 300 mg Capsule] 600 mg PO Q8 #21 cap Home Medications: Albuterol Sulfate [Ventolin Hfa] 1 puff IH Q6HP PRN 01/29/18 Atorvastatin Calcium [Lipitor 40 mg Tablet] 40 mg PO QHS 01/29/18 Budesonide/Formoterol Fumarate [Symbicort 160-4.5 Mcg Inhaler] 1 puff IN Q12 01/13 Dulaglutide [Trulicity] 1.5 mg SQ TU@1000 01/29/18 Insulin Glargine,Hum.rec.anlog [Basaglar Kwikpen U-100] 52 unit SQ QAM 01/29/18 Amox Tr/Potassium Clavulanate [Augmentin 875-125 mg Tablet] 1 tab PO BID MDD FILLED 02/19 FOR 7DS 02/22/18 Apixaban [Eliquis 5 mg Tablet] 5 mg PO Q12 02/22/18 Diltiazem HCl [Diltiazem ER] 360 mg PO DAILY 02/22/18 Lamotrigine [Lamictal] 25 mg PO DAILY 02/22/18 Olanzapine [Zyprexa] 10 mg PO QHS 02/22/18 Tamsulosin HCl [Flomax 0.4 mg Cap.sr] 0.4 mg PO DAILY 02/22/18 Tiotropium [place] [Spiriva Handihaler 18 mcg/dose (30 Dose)] 1 puff IH DAILY Clindamycin HCl [Cleocin 300 mg Capsule] 600 mg PO Q8 #21 cap 02/24/18 History of Present Illness History of Present Illness: 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 He presents after 5 days of swelling erythema and pain to his second right toe following stepping on a sharp object penetrating the sole of the shoe. He has taken amoxicillin with clavulanic acid 4 days without significant improvement prompting evaluation in the emergency room where he is found to have erythema and swelling from the toe to mid leg. He started on vancomycin and cefepime and referred to the hospitalist for admission. Hospital Course Hospital Course: Mr. Chinchilla is a 68 years old male patient presents with cellulitis involving the right leg and foot for which initially treated himself with p.o. Augmentin to no avail. He had in the hospital patient has been managed with IV vancomycin and cefepime. The cellulitis has been improving and this morning patient seen by Dr. Dr. Moeller who cleared him for discharge and follow-up with him as outpatient. I seen him today sitting by the bedside he is awake alert and oriented is not in pain or any form of distress. I will continue all his home medication and I would like for him clindamycin 600 mg every 8 hours for 7 days. Physical Exam Vital Signs: Temp Pulse Resp BP Pulse Ox 97.7 F 80 18 148/52 H 94 02/24/18 09:43 02/24/18 09:43 02/24/18 09:43 02/24/18 09:43 02/24/18 09:43 Intake & Output 02/23/18 02/24/18 02/25/18 06:59 06:59 06:59 Intake Total 2140 2460 Balance 2140 2460 General appearance: PRESENT: no acute distress, well-developed, well-nourished Head exam: PRESENT: atraumatic, normocephalic Neck exam: ABSENT: carotid bruit, JVD, lymphadenopathy, thyromegaly Respiratory exam: PRESENT: clear to auscultation fredo. ABSENT: rales, rhonchi, wheezes Cardiovascular exam: PRESENT: RRR. ABSENT: diastolic murmur, rubs, systolic murmur GI/Abdominal exam: PRESENT: normal bowel sounds, soft. ABSENT: distended, guarding, mass, organolmegaly, rebound, tenderness Neurological exam: PRESENT: alert, awake, oriented to person, oriented to place , oriented to time, oriented to situation, CN II-XII grossly intact. ABSENT: motor sensory deficit Psychiatric exam: PRESENT: appropriate affect, normal mood. ABSENT: homicidal ideation, suicidal ideation Results Laboratory Results: 02/23/18 05:15 02/23/18 05:15 Impressions: Foot X-Ray 02/21/18 19:05 IMPRESSION: NEGATIVE STUDY OF THE RIGHT FOOT. NO RADIOGRAPHIC EVIDENCE OF ACUTE INJURY. Qualifiers - * PATIENT BEING DISCHARGED WITH ANY OF THE FOLLOWING DIAGNOSIS: No
[2018-02-24] MEDS: DILTIAZEM HCL 180 MG CAPSULE.CR PO SCH (13:15)
--- NOTE | 2018-02-24 19:55 | PDOC PROGRESS REPORT ---
Subjective Progress Note for:: 02/24/18 Subjective:: no pains right foot Reason For Visit: CELLULITIS Physical Exam Vital Signs: Temp Pulse Resp BP Pulse Ox 97.7 F 82 16 148/52 H 93 02/24/18 09:43 02/24/18 11:42 02/24/18 11:42 02/24/18 09:43 02/24/18 11:42 Intake & Output 02/23/18 02/24/18 02/25/18 06:59 06:59 06:59 Intake Total 2140 2460 Balance 2140 2460 Exam: cellulitis right foot resolving but still with edema right lower leg/foot. Small dose of lasix ordered. Puncture site right 2nd toe looks dry with minimal inflammation. Palpable right C[employer]IFIED [employer] Results Laboratory Results: 02/23/18 05:15 02/23/18 05:15 Impressions: Foot X-Ray 02/21/18 19:05 IMPRESSION: NEGATIVE STUDY OF THE RIGHT FOOT. NO RADIOGRAPHIC EVIDENCE OF ACUTE INJURY. Assessment & Plan - Time Time Spent with patient: 15-24 minutes - Plan Summary Plan Summary: Agree with discharge May need po antibiotics for 5-7 days Follow up surgical clinic
[2018-03-02] MEDS ORDERED: DULAGLUTIDE 1.5 MG SUBCUT SCH (10:00)
== END 2018-02-24 13:48 | disposition home or self-care (01) | DRG 602 ==
LOC: ER 18:25 → UNDOADMIN 20:24 → EH 20:24 → 4N 22:04 → EH 22:04
PROVIDERS: ADMIT Internal Medicine; ATTEND Internal Medicine
PROC: 5A09457 Assistance with Respiratory Ventilation, 24-96 Consecutive Hours, Continuous Positive Airway Pressure (ICD-10-PCS; principal; 2018-02-21)
PROC: 3E0F73Z Introduction of Anti-inflammatory into Respiratory Tract, Via Natural or Artificial Opening (ICD-10-PCS; 2018-02-22)
DX: L03.115 Cellulitis of right lower limb (principal); J96.20 Acute and chronic respiratory failure, unspecified whether with hypoxia or hypercapnia; E11.628 Type 2 diabetes mellitus with other skin complications; E11.22 Type 2 diabetes mellitus with diabetic chronic kidney disease; I12.9 Hypertensive chronic kidney disease with stage 1 through stage 4 chronic kidney disease, or unspecified chronic kidney disease; N18.3 Chronic kidney disease, stage 3 (moderate); G47.33 Obstructive sleep apnea (adult) (pediatric); I25.10 Atherosclerotic heart disease of native coronary artery without angina pectoris; F32.9 Major depressive disorder, single episode, unspecified; F41.1 Generalized anxiety disorder; F17.210 Nicotine dependence, cigarettes, uncomplicated; D63.1 Anemia in chronic kidney disease; N40.0 Benign prostatic hyperplasia without lower urinary tract symptoms; Z79.4 Long term (current) use of insulin; Z79.899 Other long term (current) drug therapy; Z91.013 Allergy to seafood; Z91.018 Allergy to other foods; W45.0XXA Nail entering through skin, initial encounter; Y93.01 Activity, walking, marching and hiking; Y92.9 Unspecified place or not applicable; Z91.19 Patient's noncompliance with other medical treatment and regimen; Z82.3 Family history of stroke; Z82.49 Family history of ischemic heart disease and other diseases of the circulatory system
CPT/HCPCS: 36415; 36600; 80048; 80053; 82607; 82728; 82746; 82803; 82962; 83036; 83540; 83550; 84443; 85025; 85045; 85652; 86140; 87040; 93005; 93010; 94640; 94660; 96365; 99284; J0692; J0744; J1644; J1815; J1885; J1940; J3370; J3490; J7060; J7620